=== PATIENT | female | born 1945 | race Caucasian/White ===

== ENCOUNTER 2016-10-31 13:30 | Inpatient (IN) | payer MEDICARE, OTHER ==
[~2016-10-31] VITALS: Ht 160 cm; Wt 70.0 kg
[~2016-10-31 13:30] MED LIST: ACET325T33 PO; ALBU90AE INHALATION; ASPI-664 PO; ATOR20TA38 PO; CHOL100062 PO; CLON-379 PO; CLOP75TA4 PO; HYDR-3498 PO; INSU100I14 SC; ISOS30TA5 PO; METO-448 PO; OLAN5TAB5 PO; PANT40TA4 PO; SEVE800T7 PO
[2016-10-31 13:53] VITALS: Ht 160 cm; Wt 70.0 kg
[2016-10-31] MEDS ORDERED: CIPROFLOXACIN 400MG/D5W 200 ML IVPB STA (17:51)
[2016-10-31] MEDS ORDERED: CLINDAMYCIN 900 MG/D5W (PMX) 50 ML IVPB STA (17:51)
[2016-10-31] MEDS ORDERED: VANCOMYCIN 1 GM (PMX) 250 ML IVPB STA (17:51)
--- NOTE | 2016-10-31 17:57 | ERA ---
ER Documentation Chief Complaint Date/Time DATE: 10/31/16 TIME: 17:53 Chief Complaint L UPPER ARM OPEN WOUND ON DIALYSIS CATHETER. SENT HERE FOR FURTHER EVAL HPI Patient is a 70-year-old dialysis patient who comes in stating that she has had an wound on her left upper extremity for the last 2 weeks that is progressively worsening. She really cannot tell me much more than that. She does not know if she has had a fever, she does not know what it has been draining although she does know it has been draining. She denies any chest pain, shortness of breath, abdominal pain, vomiting, or diarrhea. She says she has been able to go to dialysis because she has a catheter in her chest from which they dialyze her. The remainder of the systems are very limited. ROS All systems reviewed and are negative except as per history of present illness. Medications Home Meds Active Scripts Olanzapine* (Zyprexa*) 5 Mg Tablet, 15 MG PO DAILY for 10 Days, TAB Prov:NATALY SIDDIQUI MD 04/01/16 Isosorbide Mononitrate* (Isosorbide Mononitrate*) 30 Mg Tab.er.24h, 30 MG PO DAILY for 14 Days Prov:NATALY SIDDIQUI MD 04/01/16 Reported Medications Insulin Glargine* (Lantus*) 100 Unit/Ml Soln, UNIT SC, #1 VIAL 10/31/16 Albuterol Sulfate* (Ventolin HFA*) 18 Gm Hfa.aer.ad, 2 PUFF INHALATION Q4H, #1 INHALER 10/31/16 Pantoprazole* (Pantoprazole*) 40 Mg Tablet.dr, 40 MG PO DAILY, TAB 03/28/16 Insulin Lispro (Humalog) 100 U/Ml Insuln.pen, 0 SC SLIDING SCALES, EA 0-150 NO UNUTS, 151-200 2UNITS, 201-250 4UNITS, 251-300 6UNITS, 301-350 8UNITS, 351-400 10UNITSW, >400 12UNITS CALL . 03/28/16 Atorvastatin Calcium* (Atorvastatin Calcium*) 20 Mg Tablet, 20 MG PO QHS, #30 TAB 03/27/16 Metoprolol Tartrate* (Lopressor*) 25 Mg Tab, 25 MG PO BID, #60 TAB 03/27/16 Sevelamer Carbonate* (Renvela*) 800 Mg Tablet, 1600 MG PO WITH MEALS TID, TAB 03/27/16 Clopidogrel Bisulfate* (Clopidogrel Bisulfate*) 75 Mg Tablet, 75 MG PO DAILY, # 30 TAB 03/27/16 Discontinued Reported Medications Hydrocodone Bit-Acetaminophen* (Newton*) 5-325 Mg Tab, 1 TAB PO QHS Y for COUGH for 5 Days, TAB 03/28/16 Cholecalciferol* (Vitamin D3*) 1,000 Unit Tablet, 1000 UNIT PO DAILY, TAB 03/28/16 Clonidine Hcl* (Clonidine Hcl*) 0.1 Mg Tab, 0.1 MG PO BID Y for FOR HYPERTENSION , TAB GIVEN PRN FOR BP>160 03/28/16 Albuterol Sulfate (Proair Respiclick) 90 Mcg Aer.pow.ba, 2 PUFFS INHALATION Q6, #1 BOTTLE 03/27/16 Discontinued Scripts Hydrocodone Bit/Acetaminophen (Anexsia 5-325 Mg Tablet) 1 Tab Tablet, 1 TAB PO Q6H Y for MODERATE PAIN LEVEL 4-6 for 10 Days, TAB Prov:NATALY SIDDIQUI MD 04/01/16 Aspirin* (Aspirin* EC) 81 Mg Tablet.dr, 81 MG PO DAILY for 7 Days Prov:NATALY SIDDIQUI MD 04/01/16 Acetaminophen* (Tylenol*) 325 Mg Tablet, 650 MG PO Q6H Y for PAIN AND OR ELEVATED TEMP for 7 Days, TAB Prov:NATALY SIDDIQUI MD 04/01/16 Allergies Allergies: Coded Allergies: Penicillins (Verified Allergy, Unknown, 10/31/16) PMhx/Soc History of Surgery: Yes (thrombectomy) Hx Neurological Disorder: Yes (Admitted with acute encrphalopathy) Hx Respiratory Disorders: Yes (COPD) Hx Cardiac Disorders: Yes (HTN) Hx Psychiatric Problems: No Hx Miscellaneous Medical Probl: Yes (CKD, AV shunt L arm, DM, PVD, COPD, HTN, ESRD, anxiety, CVA, IA, CAD) Hx Alcohol Use: No Hx Substance Use: No Hx Tobacco Use: Yes (Former smoker) FmHx Family History: coronary disease, diabetes Physical Exam Vitals Vital Signs Date Time Temp Pulse Resp B/P Pulse Ox O2 Delivery O2 Flow Rate FiO2 10/31/16 18:30 97.9 84 20 123/73 98 Nasal Cannula 2.0 10/31/16 18:30 Nasal Cannula 2 10/31/16 16:21 87 18 151/66 98 10/31/16 13:53 97.2 87 18 120/61 96 Physical Exam Const: [] Well-developed well-nourished female sitting on the bed in no acute distress. She has a notable resting tremor in her right upper extremity that appears to be a pill-rolling tremor. Head: Atraumatic normocephalic Eyes: Normal Conjunctiva ENT: Normal External Ears, Nose and Mouth. Neck: Full range of motion..~ No meningismus. Resp: Clear to auscultation bilaterally Cardio: Regular rate and rhythm, 3/6 systolic ejection murmur Abd: Soft, non tender, non distended. Normal bowel sounds Skin: No petechiae or rashes Back: No midline or flank tenderness Ext: No cyanosis, or edema, left upper extremity shows 2 wounds overlying her prior fistula. This wound area is erythematous and warm. It also appears that these wounds are eroding. They appear to have originated from prior puncture wounds. Neur: Awake and alert Psych: Normal Mood and Affect Result Diagram: 10/31/16181410/31/161814 Results 24 hrs Laboratory Tests Test 10/31/16 18:15 10/31/16 19:35 10/31/16 19:38 Activated Partial Thromboplast Time 28.8Sec Alanine Aminotransferase (ALT/SGPT) 22IU/L Albumin 3.8g/dl Albumin/Globulin Ratio 0.97 Alkaline Phosphatase 141IU/L Anion Gap 18 Aspartate Amino Transf (AST/SGOT) 18IU/L Basophils # 0.010^3/ul Basophils % 0.2% Blood Urea Nitrogen 29mg/dl Calcium Level 9.5mg/dl Carbon Dioxide Level 29mmol/L Chloride Level 99mmol/L Creatinine 2.73mg/dl Direct Bilirubin 0.00mg/dl Eosinophils # 0.410^3/ul Eosinophils % 5.0% Globulin 3.90g/dl Glucose Level 216mg/dl Hematocrit 35.7% Hemoglobin 11.4g/dl INR International Normalized Ratio 0.92 Indirect Bilirubin 0.0mg/dl Lactic Acid Level 1.6mmol/L 1.5mmol/L Lymphocytes # 1.210^3/ul Lymphocytes % 13.9% Mean Corpuscular Hemoglobin 29.3pg Mean Corpuscular Hemoglobin Concent 31.9g/dl Mean Corpuscular Volume 91.8fl Mean Platelet Volume 11.2fl Monocytes # 0.810^3/ul Monocytes % 9.2% Neutrophils # 6.110^3/ul Neutrophils % 71.2% Nucleated Red Blood Cells # 0.010^3/ul Nucleated Red Blood Cells % 0.0/100WBC Platelet Count 30498^3/UL Potassium Level 4.5mmol/L Prothrombin Time 12.4Sec Prothrombin Time Ratio 1.0 Red Blood Count 3.8910^6/ul Red Cell Distribution Width 13.4% Sodium Level 141mmol/L Total Bilirubin 0.0mg/dl Total Protein 7.7g/dl Troponin I < 0.012ng/ml White Blood Count 8.610^3/ul Urine Bilirubin NEGATIVE Urine Clarity CLEAR Urine Color LT. YELLOW Urine Glucose 0.5%% Urine Hemoglobin TRACE Urine Ketones NEGATIVE Urine Leukocyte Esterase NEGATIVE Urine Microscopic RBC 0-2/HPF Urine Microscopic WBC NONE SEEN/HPF Urine Nitrite NEGATIVE Urine Specific [place] <=1.005 Urine Squamous Epithelial Cells MANY Urine Total Protein 1+ Urine Urobilinogen 0.2 E.U./dL Urine pH 7.0 Current Medications Medications (Trade) Dose Ordered Sig/Sonny Route PRN Reason Start Time Stop Time Status Last Admin Dose Admin Vancomycin HCl 250 ml @ 125 mls/hr ONCE STAT IVPB 10/31/16 17:51 10/31/16 19:50 DC Clindamycin HCl/ Dextrose 50 ml @ 50 mls/hr ONCE STAT IVPB 10/31/16 17:51 10/31/16 18:50 DC 10/31/16 20:45 Ciprofloxacin/ Dextrose (Cipro Ivpb) 200 ml @ 200 mls/hr ONCE STAT IVPB 10/31/16 17:51 10/31/16 18:50 DC 10/31/16 19:44 Procedures/MDM Differential includes but is not limited to cellulitis, abscess, fistula which is eroding through the skin, diabetes, hypertension, end-stage renal disease with complications Chest X-ray 1V Interpreted by me: Soft Tissue: No acute abnormalities Bones: No acute abnormalities Mediastinum/Cardiac Silhouette/Lungs: No acute abnormalities Dialysis catheter in place EKG: Rate/Rhythm: Normal Sinus Rhythm at 90 bpm with no evidence of acute ischemia, no ST-T wave changes noted, LA intervals within normal limits, QT intervals also within normal limits QRS, ST, T-waves: No changes consistent w/ acute ischemia Impression: No evidence of ischemia or arrhythmia Patient has not had any change in her clinical status. Dr. Siddiqui is here seeing another patient. He has been notified of this patient and he is seeing her now. 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
[2016-10-31 18:25] LABS: ADD SCAN DIFF NO
[2016-10-31 18:26] LABS: BASOPHILS % 0.2 % (0.0-2.0); EOSINOPHILS # 0.4 10^3/ul (0.0-0.5); HEMATOCRIT 35.7 % (37.0-47.0); HEMOGLOBIN 11.4 g/dl (12.0-16.0); LYMPHOCYTES # 1.2 10^3/ul (0.8-2.9); LYMPHOCYTES % 13.9 % (15.0-51.0); MEAN CORPUSCULAR HEMOGLOBIN 29.3 pg (29.0-33.0); MEAN CORPUSCULAR HGB CONC 31.9 g/dl (32.0-37.0); MEAN CORPUSCULAR VOLUME 91.8 fl (82.0-101.0); MEAN PLATELET VOLUME 11.2 fl (7.4-10.4); MONOCYTE # 0.8 10^3/ul (0.3-0.9); MONOCYTES % 9.2 % (0.0-11.0); NEUTROPHIL # 6.1 10^3/ul (1.6-7.5); NEUTROPHILS % 71.2 % (39.0-77.0); PLATELET COUNT 204 10^3/UL (140-415); RED BLOOD COUNT 3.89 10^6/ul (4.20-5.40); RED CELL DISTRIBUTION WIDTH 13.4 % (11.5-14.5); WHITE BLOOD COUNT 8.6 10^3/ul (4.8-10.8)
--- NOTE | 2016-10-31 18:27 | RADRPT ---
PROCEDURE: Chest x-ray CLINICAL INDICATION: Sepsis TECHNIQUE: Chest single view COMPARISON: 03/28/2016 FINDINGS: As before there is left IJ dialysis catheter. Stable cardiomegaly and an sclerotic aortic calcifica tion seen. The pulmonary vessels normal in caliber. Persistent elevation left hemidiaphragm with m ild left basilar compressive atelectasis. Trace left pleural effusion seen. Right lung is clear. Costophrenic angle sharp. IMPRESSION: 1. Dialysis catheter remains in place. 2. Stable cardiomegaly and an sclerotic aortic calcification. 3. Small left pleural effusion with minimal left basilar atelectasis RPTAT: HH .Ben Vizcaino MD, Date Time Electronically viewed and signed by .Ben Vizcaino MD, on 10/31/2016 18:26 .W/
[2016-10-31 18:37] LABS: INR 0.92; PROTIME 12.4 Sec (12.2-14.2)
[2016-10-31 18:38] LABS: PARTIAL THROMBOPLASTIN TIME 28.8 Sec (25.0-35.0)
[2016-10-31 18:39] LABS: ALBUMIN 3.8 g/dl (3.3-4.9); CHLORIDE 99 mmol/L (97-110)
[2016-10-31 18:40] LABS: POTASSIUM 4.5 mmol/L (3.5-5.1); SODIUM 141 mmol/L (135-144)
[2016-10-31 18:42] LABS: ALBUMIN/GLOBULIN RATIO 0.97; ANION GAP 18 (8-16); ASPARTATE AMINO TRANSFERASE 18 IU/L (15-46); BLOOD UREA NITROGEN 29 mg/dl (7-20); CARBON DIOXIDE 29 mmol/L (21-31); CREATININE 2.73 mg/dl (0.44-1.00); TOTAL PROTEIN 7.7 g/dl (6.1-8.1)
[2016-10-31 18:43] LABS: ALANINE AMINOTRANSFERASE 22 IU/L (13-69); ALKALINE PHOSPHATASE 141 IU/L (42-121); CALCIUM 9.5 mg/dl (8.4-10.2); GLUCOSE 216 mg/dl (70-220)
[2016-10-31 18:56] LABS: TROPONIN-I < 0.012 ng/ml (0.00-0.12)
[2016-10-31] MEDS ORDERED: ALBU18HF INHALATION (19:19)
[2016-10-31] MEDS ORDERED: LANT3I SC (19:19)
[2016-10-31 19:50] LABS: ADD UMIC YES; URINE BILIRUBIN (Dip) NEGATIVE (NEGATIVE); URINE BLOOD (Dip) TRACE (NEGATIVE); URINE COLOR LT. YELLOW (YELLOW); URINE KETONES (Dip) NEGATIVE (NEGATIVE); URINE LEUKOCYTE ESTERASE (Dip) NEGATIVE (NEGATIVE); URINE NITRITE (Dip) NEGATIVE (NEGATIVE); URINE TOTAL PROTEIN (Dip) 1+ (NEGATIVE); URINE UROBILINOGEN (Dip) 0.2 E.U./dL (0.1-1.0)
[2016-10-31 20:12] LABS: SQUAMOUS EPITHELIAL CELL,UR MANY
[2016-10-31 20:14] LABS: URINE RBCS 0-2 /HPF (0)
[2016-10-31 20:30] VITALS: TEMP 98
[2016-10-31] MEDS ORDERED: ACETAMINOPHEN 325 MG TAB PO PRN (21:00)
[2016-10-31] MEDS ORDERED: ONDANSETRON 4 MG INJ IV PRN ×2 (21:00→23:30)
[2016-10-31 22:16] VITALS: BP 131/63; RESP 18
--- NOTE | 2016-10-31 23:24 | QN ---
Documentation Comment a/p esrd htn cad left arm woundplan wound care NATALY SIDDIQUI MD Oct 31, 2016 23:23
[2016-10-31] MEDS ORDERED: ACETAMINOPHEN 650 MG SUPP PR PRN (23:30)
[2016-10-31] MEDS ORDERED: VANCOMYCIN IV PER PHARMACY XX SCH (23:30)
[2016-10-31] MEDS ORDERED: BISACODYL (EC) 5 MG TAB PO PRN (23:30)
[2016-10-31] MEDS ORDERED: DOCUSATE SODIUM 100 MG CAP PO PRN (23:30)
[2016-10-31] MEDS ORDERED: NACL 0.9% 3 ML SYG IV SCH (23:30)
[2016-10-31] MEDS ORDERED: GLUCOSE GEL 15 GRAM TUBE BUCCAL PRN (23:45)
[2016-10-31] MEDS ORDERED: DEXTROSE 50% 50 ML SYRINGE IV PRN ×2 (23:45)
[2016-10-31] MEDS ORDERED: GLUCOSE GEL 15 GRAM TUBE PO PRN ×2 (23:45)
[2016-10-31] MEDS ORDERED: GLUCAGON 1 MG INJ IM PRN (23:45)
[2016-11-01] MEDS: ACCUCHECK XX SCH (03:00)
[2016-11-01] MEDS: ALBUTEROL HFA 8 GM INHALER INH SCH ×6 (03:00→20:56)
[2016-11-01 05:06] LABS: ADD SCAN DIFF NO
[2016-11-01 05:24] LABS: ALBUMIN 3.4 g/dl (3.3-4.9)
[2016-11-01 05:25] LABS: POTASSIUM 4.2 mmol/L (3.5-5.1)
[2016-11-01 05:27] LABS: CREATININE 3.47 mg/dl (0.44-1.00); TOTAL PROTEIN 6.8 g/dl (6.1-8.1)
[2016-11-01 05:28] LABS: CALCIUM 8.7 mg/dl (8.4-10.2)
[2016-11-01 05:36] LABS: BASOPHILS % 0.4 % (0.0-2.0); EOSINOPHILS # 0.6 10^3/ul (0.0-0.5); EOSINOPHILS % 8.2 % (0.0-7.0); HEMATOCRIT 33.6 % (37.0-47.0); HEMOGLOBIN 10.4 g/dl (12.0-16.0); LYMPHOCYTES # 1.1 10^3/ul (0.8-2.9); LYMPHOCYTES % 15.1 % (15.0-51.0); MEAN CORPUSCULAR HEMOGLOBIN 28.7 pg (29.0-33.0); MEAN CORPUSCULAR VOLUME 92.8 fl (82.0-101.0); MEAN PLATELET VOLUME 11.7 fl (7.4-10.4); MONOCYTE # 0.9 10^3/ul (0.3-0.9); MONOCYTES % 12.4 % (0.0-11.0); NEUTROPHIL # 4.8 10^3/ul (1.6-7.5); NEUTROPHILS % 63.1 % (39.0-77.0); PLATELET COUNT 195 10^3/UL (140-415); RED BLOOD COUNT 3.62 10^6/ul (4.20-5.40); RED CELL DISTRIBUTION WIDTH 13.5 % (11.5-14.5); WHITE BLOOD COUNT 7.6 10^3/ul (4.8-10.8)
[2016-11-01] MEDS: PANTOPRAZOLE (EC) 40 MG TAB PO SCH (05:37)
[2016-11-01] MEDS ORDERED: LEVOFLOXACIN 500 MG TAB PO ONE (06:00)
[2016-11-01] MEDS: INSULIN ASPART [NOVOLOG] 3 ML PEN SC SCH ×4 (08:00→20:55)
[2016-11-01 08:01] VITALS: BP 104/49; RESP 20
[2016-11-01] MEDS: ISOSORBIDE MONONITRATE(SR)30 MG TAB PO SCH (08:22)
[2016-11-01] MEDS: METOPROLOL 25 MG TAB PO SCH ×2 (08:22→20:50)
[2016-11-01] MEDS: SEVELAMER CARBONATE 0.8 GM PKT PO SCH ×3 (08:23→20:50)
[2016-11-01] MEDS: CLOPIDOGREL 75 MG TAB PO SCH (08:23)
[2016-11-01] MEDS: OLANZAPINE 5 MG TAB PO SCH (08:23)
--- NOTE | 2016-11-01 16:40 | PN ---
Date/Time of Note Date/Time of Note DATE: 11/01/16 TIME: 16:37 Assessment/Plan VTE Prophylaxis VTE Prophylaxis Intervention: other Lines/Catheters IV [facility] Saline Lock Urinary Cath still in place: No Assessment/Plan Chief Complaint/Hosp Course A/P ARM WOUND ESRD ASHD PLAN HD DR MCGOWAN TO SEE Problems: Subjective 24 Hr Interval Summary Cardiovascular: no complaints Gastrointestinal: no complaints Skin: skin lesions (LEFT ARM+) Exam/Review of Systems Vital Signs Vitals Vital Signs Date Time Temp Pulse Resp B/P Pulse Ox O2 Delivery O2 Flow Rate FiO2 11/01/16 08:01 98.9 74 20 104/49 94 10/31/16 20:30 Nasal Cannula 2.0 Intake and Output 10/31/16 10/31/16 11/01/16 15:00 23:00 07:00 Intake Total 770 ml Output Total 2 ml Balance 768 ml Exam Respiratory: clear to auscultation Cardiovascular: regular rate and rhythm Musculoskeletal: other (LEFT ARM WOUND+), swelling (LEFT ARM+) Results Result Diagram: 11/01/16 0410 11/01/16 0410 Results 24 hrs Laboratory Tests Test 10/31/16 18:15 10/31/16 19:35 10/31/16 19:38 10/31/16 23:15 Activated Partial Thromboplast Time 28.8 Alanine Aminotransferase (ALT/SGPT) 22 Albumin 3.8 Albumin/Globulin Ratio 0.97 Alkaline Phosphatase 141 H Anion Gap 18 H Aspartate Amino Transf (AST/SGOT) 18 Basophils # 0.0 Basophils % 0.2 Blood Urea Nitrogen 29 H Calcium Level 9.5 Carbon Dioxide Level 29 Chloride Level 99 Creatinine 2.73 H Direct Bilirubin 0.00 Eosinophils # 0.4 Eosinophils % 5.0 Globulin 3.90 H Glucose Level 216 Hematocrit 35.7 L Hemoglobin 11.4 L INR International Normalized Ratio 0.92 Indirect Bilirubin 0.0 Lactic Acid Level 1.6 1.5 1.8 Lymphocytes # 1.2 Lymphocytes % 13.9 L Mean Corpuscular Hemoglobin 29.3 Mean Corpuscular Hemoglobin Concent 31.9 L Mean Corpuscular Volume 91.8 Mean Platelet Volume 11.2 H Monocytes # 0.8 Monocytes % 9.2 Neutrophils # 6.1 Neutrophils % 71.2 Nucleated Red Blood Cells # 0.0 Nucleated Red Blood Cells % 0.0 Platelet Count 204 Potassium Level 4.5 Prothrombin Time 12.4 Prothrombin Time Ratio 1.0 Red Blood Count 3.89 L Red Cell Distribution Width 13.4 Sodium Level 141 Total Bilirubin 0.0 L Total Protein 7.7 Troponin I < 0.012 White Blood Count 8.6 Urine Bilirubin NEGATIVE Urine Clarity CLEAR Urine Color LT. YELLOW Urine Glucose 0.5% H Urine Hemoglobin TRACE Urine Ketones NEGATIVE Urine Leukocyte Esterase NEGATIVE Urine Microscopic RBC 0-2 Urine Microscopic WBC NONE SEEN Urine Nitrite NEGATIVE Urine Specific [place] <=1.005 L Urine Squamous Epithelial Cells MANY Urine Total Protein 1+ H Urine Urobilinogen 0.2 E.U./dL Urine pH 7.0 Test 11/01/16 04:10 11/01/16 08:01 11/01/16 11:23 Alanine Aminotransferase (ALT/SGPT) 29 Albumin 3.4 Albumin/Globulin Ratio 1.00 Alkaline Phosphatase 125 H Anion Gap 16 Aspartate Amino Transf (AST/SGOT) 15 Basophils # 0.0 Basophils % 0.4 Blood Urea Nitrogen 38 H Calcium Level 8.7 Carbon Dioxide Level 28 Chloride Level 100 Creatinine 3.47 H Direct Bilirubin 0.00 Eosinophils # 0.6 H Eosinophils % 8.2 H Globulin 3.40 H Glucose Level 238 H Hematocrit 33.6 L Hemoglobin 10.4 L Indirect Bilirubin 0.0 Lymphocytes # 1.1 Lymphocytes % 15.1 Mean Corpuscular Hemoglobin 28.7 L Mean Corpuscular Hemoglobin Concent 31.0 L Mean Corpuscular Volume 92.8 Mean Platelet Volume 11.7 H Monocytes # 0.9 Monocytes % 12.4 H Neutrophils # 4.8 Neutrophils % 63.1 Nucleated Red Blood Cells # 0.0 Nucleated Red Blood Cells % 0.0 Platelet Count 195 Potassium Level 4.2 Red Blood Count 3.62 L Red Cell Distribution Width 13.5 Sodium Level 140 Total Bilirubin 0.0 L Total Protein 6.8 White Blood Count 7.6 Bedside Glucose 248 H 176 Medications Medications Current Medications Atorvastatin Calcium (Lipitor) 20 mg QHS PO ; Start 11/01/16 at 21:00 Clopidogrel Bisulfate (plaVIX) 75 mg DAILY PO ; Start 11/01/16 at 09:00 Isosorbide Mononitrate (Imdur) 30 mg DAILY PO ; Start 11/01/16 at 09:00 Metoprolol Tartrate (Lopressor) 25 mg BID PO ; Start 11/01/16 at 09:00 Olanzapine (Zyprexa) 15 mg DAILY PO ; Start 11/01/16 at 09:00 Pantoprazole (Protonix Tab) 40 mg DAILY@06 PO Last administered on 11/01/16t 05: 37; Admin Dose 40 MG; Start 11/01/16 at 06:00 Sevelamer Carbonate (Renvela) 1.6 gm TID PO ; Start 11/01/16 at 09:00 Ondansetron HCl (Zofran Inj) 4 mg Q6H PRN IV NAUSEA AND/OR VOMITING; Start 10/31 at 23:30 Acetaminophen (Tylenol Tab) 650 mg Q6H PRN PO PAIN LEVEL 1-3 OR FEVER; Start at 23:30 Acetaminophen (Tylenol Supp) 650 mg Q6H PRN [place] PAIN LEVEL 1-3 OR FEVER; Start 10/31/16 at 23:30 Docusate Sodium (Colace) 100 mg Q12H PRN PO CONSTIPATION; Start 10/31/16 at 23: 30 Bisacodyl (Dulcolax) 5 mg DAILY PRN PO CONSTIPATION; Start 10/31/16 at 23:30 Diagnostic Test (Pha) (Accucheck) 1 ea 02 XX ; Start 11/01/16 at 02:00 Levofloxacin (Levaquin) 250 mg Q48H PO ; Start 11/03/16 at 06:00 Miscellaneous Information 1 ea NOTE XX ; Start 10/31/16 at 23:45 Glucose (Glutose) 15 gm Q15M PRN PO DECREASED GLUCOSE; Start 10/31/16 at 23:45 Glucose (Glutose) 22.5 gm Q15M PRN PO DECREASED GLUCOSE; Start 10/31/16 at 23:45 Dextrose (D50w Syringe) 25 ml Q15M PRN IV DECREASED GLUCOSE; Start 10/31/16 at 23:45 Dextrose (D50w Syringe) 50 ml Q15M PRN IV DECREASED GLUCOSE; Start 10/31/16 at 23:45 Glucagon (Glucagen) 1 mg Q15M PRN IM DECREASED GLUCOSE; Start 10/31/16 at 23:45 Glucose (Glutose) 15 gm Q15M PRN BUCCAL DECREASED GLUCOSE; Start 10/31/16 at 23: 45 Miscellaneous Information (*Rx Drug Level Order Reminder*) VANCO RANDOM LEVEL... ONCE ONCE XX ; Start 11/02/16 at 05:00; Stop 11/02/16 at 05:01 NATALY SIDDIQUI MD Nov 01, 2016 16:40
--- NOTE | 2016-11-01 16:46 | QN ---
Documentation Comment [id number] NATALY SIDDIQUI MD Nov 01, 2016 16:46
--- NOTE | 2016-11-01 17:37 | HP ---
DATE OF ADMISSION: 10/31/2016 HISTORY OF PRESENT ILLNESS: The patient is a 70-year-old female with history of ESRD. Patient has history of hypertension, diabetes mellitus, anemia, history of pulmonary edema, history of atherosclerotic heart disease. History of smoking in the past, history of Clostridium difficile colitis, congestive heart failure, HI, dyslipidemia, atherosclerotic heart disease, chronic bilateral infarction, deconditioning, lung atelectasis, was in the dialysis center, has an infected AV graft and almost bursting . The patient was sent here for further evaluation where she was seen and is admitted for further treatment. PAST MEDICAL HISTORY: As mentioned above, history of CVA, atherosclerotic heart disease, dyslipidemia, HI and congestive heart failure, C. difficile colitis, history of pulmonary edema, anemia, diabetes mellitus, hypertension, and ESRD. ALLERGY HISTORY: NEGATIVE. SOCIAL HISTORY: Negative except ex-smoker. MEDICATION HISTORY: The patient is on: 1. Albuterol. 2. Lipitor. 3. Plavix. 4. Insulin. 5. Isosorbide. 6. Metoprolol. 7. Zyprexa 8. Protonix. 9. Renvela. REVIEW OF SYSTEMS: HEENT: Unremarkable. RESPIRATORY: Unremarkable. CARDIOVASCULAR: Unremarkable. ABDOMEN: Unremarkable. EXTREMITIES: Left upper extremity AV graft protruding out, swollen, no bleeding. PHYSICAL EXAMINATION: GENERAL: The patient is an elderly female. VITAL SIGNS: Pulse 71, blood pressure 104/49. HEAD: Atraumatic, normocephalic. Pale conjunctivae. NECK: Supple. LUNGS: Clear. CARDIOVASCULAR: S1, S2 normal. ABDOMEN: Soft, nontender. Bowel sounds positive. No palpable mass. EXTREMITIES: No cyanosis, clubbing. Edema positive. LABORATORY DATA: As mentioned above. IMPRESSION: 1. Patient has a protruding graft on the upper extremity. 2. Hypertension. 3. Diabetes mellitus. 4. Anemia. 5. Atherosclerotic heart disease. 6. Dyslipidemia. PLAN: To continue with her diuretic and with renal diet. Continue home medication, antibiotic. Surgical consultation. Orders were done. Dictated By: NATALY SIDDIQUI MD BS/NTS Conf#: [id number] DID#: [id number] MTDD
[2016-11-01] MEDS: ATORVASTATIN 20 MG TAB PO SCH (20:43)
[2016-11-01 21:12] VITALS: BP 125/60; RESP 19
[2016-11-02] VITALS (11 sets, daily range): BP systolic 96–168; BP diastolic 38–73; PULSE 50–156; RESP 17–20
[2016-11-02] MEDS: ALBUTEROL HFA 8 GM INHALER INH SCH ×6 (01:00→21:00)
[2016-11-02] MEDS: ACCUCHECK XX SCH (01:38)
--- NOTE | 2016-11-02 04:35 | CONS ---
DATE OF ADMISSION: 10/31/2016 DATE OF CONSULTATION: REASON FOR CONSULTATION: Surgical. Thank you, Dr. Melendrez, for asking me to see this patient. HISTORY OF PRESENT ILLNESS: This is a 70-year-old female currently on dialysis with PermCath. The patient has had a left upper extremity AV fistula which has an exposed part. The patient is now zac ng admitted for antibiotics and local wound care of cellulitis and open wound on the left arm AV gra ft. PAST MEDICAL HISTORY: Significant for CVA, NH, dyslipidemia, C. difficile colitis, hypertension, GE RD, diabetes, anemia, pulmonary edema. PAST SURGICAL HISTORY: AV graft and dialysis catheters. MEDICATIONS 1. Albuterol. 2. Lipitor. 3. Plavix. 4. Insulin. 5. Isosorbide. 6. PAST SURGICAL HISTORY: As above. REVIEW OF SYSTEMS: Negative. PHYSICAL EXAMINATION: VITAL SIGNS: Blood pressure is 125/60, pulse is 89, respirations 18, saturations 96% on 2 liters of oxygen. HEENT: Normocephalic, atraumatic. PERRLA. NECK: Supple. No JVD, no carotid bruits. CARDIOVASCULAR: Regular rate and rhythm. LUNGS: Clear. ABDOMEN: Soft. EXTREMITIES: Warm. Left arm AV fistula is in place. There is an open sore in the upper aspect of the fistula with graft material seen. LABORATORY VALUES: Significant for a white count of 7.6, hemoglobin 11.4, platelet count 195. IMPRESSION: Infection, left upper extremity arteriovenous graft. RECOMMENDATIONS: I recommend to remove the graft after a period of antibiotic treatment. Discussed with the nursing staff. We will discuss with Dr. Melendrez. Dictated By: CHAGO SUAZO MD FM/NTS Conf#: [id number] DID#: [id number]
[2016-11-02] MEDS: PANTOPRAZOLE (EC) 40 MG TAB PO SCH (05:44)
[2016-11-02] MEDS: INSULIN ASPART [NOVOLOG] 3 ML PEN SC SCH ×4 (08:35→22:27)
[2016-11-02] MEDS: OLANZAPINE 5 MG TAB PO SCH (08:36)
[2016-11-02] MEDS: CLOPIDOGREL 75 MG TAB PO SCH (08:37)
[2016-11-02] MEDS: ISOSORBIDE MONONITRATE(SR)30 MG TAB PO SCH (08:41)
[2016-11-02] MEDS: SEVELAMER CARBONATE 0.8 GM PKT PO SCH ×3 (08:41→21:15)
[2016-11-02] MEDS: METOPROLOL 25 MG TAB PO SCH ×3 (08:41→22:21)
--- NOTE | 2016-11-02 10:20 | PN ---
Date/Time of Note Date/Time of Note DATE: 11/02/16 TIME: 10:19 Assessment/Plan Lines/Catheters IV Catheter Type (from Nrsg): Saline Lock Pickard in Place (from Nrsg): No Assessment/Plan Chief Complaint/Hosp Course IMPRESSION: Infection, left upper extremity arteriovenous graft. RECOMMENDATIONS: I recommend to remove the graft after a period of antibiotic treatment. Discussed with the nursing staff. We will discuss with Dr. Melendrez. Problems: Subjective 24 Hr Interval Summary Constitutional: improved Pain Control: mild Exam/Review of Systems Vital Signs Vitals Vital Signs Date Time Temp Pulse Resp B/P Pulse Ox O2 Delivery O2 Flow Rate FiO2 11/02/16 08:29 98.4 67 17 108/51 95 10/31/16 20:30 Nasal Cannula 2.0 Intake and Output 11/01/16 11/01/16 11/02/16 15:00 23:00 07:00 Intake Total 960 ml 480 ml Balance 960 ml 480 ml Exam Neck: non-tender, supple Respiratory: clear to auscultation, normal air movement Cardiovascular: nl pulses, regular rate and rhythm Gastrointestinal: nl liver, spleen, non-tender, soft Results Result Diagram: 11/01/16 0410 11/01/16 0410 CHAGO SUAZO MD Nov 02, 2016 10:20
[2016-11-02] MEDS ORDERED: VANCOMYCIN 1 GM in NS 250 ML IVPB SCH (12:00)
--- NOTE | 2016-11-02 16:51 | PN ---
Date/Time of Note Date/Time of Note DATE: 11/02/16 TIME: 16:50 Assessment/Plan VTE Prophylaxis VTE Prophylaxis Intervention: other Lines/Catheters [facility] Saline Lock Urinary Cath still in place: No Assessment/Plan Chief Complaint/Hosp Course IMPRESSION: 1. Patient has a protruding graft on the upper extremity. 2. Hypertension. 3. Diabetes mellitus. 4. Anemia. 5. Atherosclerotic heart disease. 6. Dyslipidemia. PLAN ANTIBIOTIC HD Problems: Subjective 24 Hr Interval Summary Cardiovascular: no complaints Gastrointestinal: no complaints Exam/Review of Systems Vital Signs Vitals Vital Signs Date Time Temp Pulse Resp B/P Pulse Ox O2 Delivery O2 Flow Rate FiO2 11/02/16 15:30 156 11/02/16 15:30 18 11/02/16 13:56 Nasal Cannula 2.0 11/02/16 08:29 98.4 108/51 95 Intake and Output 11/01/16 11/01/16 11/02/16 15:00 23:00 07:00 Intake Total 960 ml 480 ml Balance 960 ml 480 ml Exam Respiratory: clear to auscultation Cardiovascular: regular rate and rhythm Gastrointestinal: soft Musculoskeletal: nl extremities to inspection Extremities: normal pulses Results Result Diagram: 11/01/16 0410 11/01/16 0410 Results 24 hrs Laboratory Tests Test 11/01/16 17:16 11/01/16 20:54 11/02/16 01:35 11/02/16 04:30 Bedside Glucose 227 H 255 H 194 Random Vancomycin Level 13.3 Test 11/02/16 08:02 11/02/16 11:50 Bedside Glucose 197 283 H Medications Medications Current Medications Atorvastatin Calcium (Lipitor) 20 mg QHS PO Last administered on 11/01/16 20:43 ; Admin Dose 20 MG; Start 11/01/16 at 21:00 Clopidogrel Bisulfate (plaVIX) 75 mg DAILY PO Last administered on 11/02/16 08: 37; Admin Dose 75 MG; Start 11/01/16 at 09:00 Isosorbide Mononitrate (Imdur) 30 mg DAILY PO ; Start 11/01/16 at 09:00 Metoprolol Tartrate (Lopressor) 25 mg BID PO Last administered on 11/02/16 15: 43; Admin Dose 25 MG; Start 11/01/16 at 09:00 Olanzapine (Zyprexa) 15 mg DAILY PO Last administered on 11/02/16 08:36; Admin Dose 15 MG; Start 11/01/16 at 09:00 Pantoprazole (Protonix Tab) 40 mg DAILY@06 PO Last administered on 11/02/16 05: 44; Admin Dose 40 MG; Start 11/01/16 at 06:00 Sevelamer Carbonate (Renvela) 1.6 gm TID PO Last administered on 11/01/16 20:50 ; Admin Dose 1.6 GM; Start 11/01/16 at 09:00 Ondansetron HCl (Zofran Inj) 4 mg Q6H PRN IV NAUSEA AND/OR VOMITING; Start 10/31 at 23:30 Acetaminophen (Tylenol Tab) 650 mg Q6H PRN PO PAIN LEVEL 1-3 OR FEVER; Start at 23:30 Acetaminophen (Tylenol Supp) 650 mg Q6H PRN IN PAIN LEVEL 1-3 OR FEVER; Start 10/31/16 at 23:30 Docusate Sodium (Colace) 100 mg Q12H PRN PO CONSTIPATION; Start 10/31/16 at 23: 30 Bisacodyl (Dulcolax) 5 mg DAILY PRN PO CONSTIPATION; Start 10/31/16 at 23:30 Diagnostic Test (Pha) (Accucheck) 1 ea 02 XX Last administered on 11/02/16 01: 38; Admin Dose 1 EA; Start 11/01/16 at 02:00 Levofloxacin (Levaquin) 250 mg Q48H PO ; Start 11/03/16 at 06:00 Miscellaneous Information 1 ea NOTE XX ; Start 10/31/16 at 23:45 Glucose (Glutose) 15 gm Q15M PRN PO DECREASED GLUCOSE; Start 10/31/16 at 23:45 Glucose (Glutose) 22.5 gm Q15M PRN PO DECREASED GLUCOSE; Start 10/31/16 at 23:45 Dextrose (D50w Syringe) 25 ml Q15M PRN IV DECREASED GLUCOSE; Start 10/31/16 at 23:45 Dextrose (D50w Syringe) 50 ml Q15M PRN IV DECREASED GLUCOSE; Start 10/31/16 at 23:45 Glucagon (Glucagen) 1 mg Q15M PRN IM DECREASED GLUCOSE; Start 10/31/16 at 23:45 Glucose 15 gm 15 gm Q15M PRN BUCCAL DECREASED GLUCOSE; Start 10/31/16 at 23:45 Vancomycin HCl (Vancocin) 250 ml @ 125 mls/hr ONCE IVPB Last administered on t 15:44; Admin Dose 125 MLS/HR; Start 11/02/16 at 12:00; Stop 11/02/16 at 19 :00 NATALY SIDDIQUI MD Nov 02, 2016 16:51
[2016-11-02] MEDS: ATORVASTATIN 20 MG TAB PO SCH (21:15)
[2016-11-03] MEDS: ALBUTEROL HFA 8 GM INHALER INH SCH ×6 (01:04→20:32)
[2016-11-03] MEDS ORDERED: ACCUCHECK XX SCH (02:00)
[2016-11-03] MEDS: ACCUCHECK XX SCH (02:00)
[2016-11-03] MEDS: PANTOPRAZOLE (EC) 40 MG TAB PO SCH (05:51)
[2016-11-03] MEDS: LEVOFLOXACIN 250 MG TAB PO SCH (05:51)
[2016-11-03 07:15] VITALS: BP 113/59; RESP 20
[2016-11-03] MEDS ORDERED: INSULIN ASPART [NOVOLOG] 3 ML PEN SC SCH ×2 (08:00→22:15)
[2016-11-03] MEDS: INSULIN ASPART [NOVOLOG] 3 ML PEN SC SCH ×4 (08:23→21:00)
[2016-11-03] MEDS: ISOSORBIDE MONONITRATE(SR)30 MG TAB PO SCH (08:29)
[2016-11-03] MEDS: OLANZAPINE 5 MG TAB PO SCH (08:30)
[2016-11-03] MEDS: SEVELAMER CARBONATE 0.8 GM PKT PO SCH ×3 (08:30→20:27)
[2016-11-03] MEDS: CLOPIDOGREL 75 MG TAB PO SCH (08:30)
[2016-11-03] MEDS: METOPROLOL 25 MG TAB PO SCH ×2 (08:30→20:27)
--- NOTE | 2016-11-03 13:11 | PN ---
Date/Time of Note Date/Time of Note DATE: 11/03/16 TIME: 13:10 Assessment/Plan Lines/Catheters IV Catheter Type (from Nrsg): Saline Lock Pickard in Place (from Nrsg): No Assessment/Plan Chief Complaint/Hosp Course IMPRESSION: Infection, left upper extremity arteriovenous graft. RECOMMENDATIONS: I recommend to remove the graft after a period of antibiotic treatment. Discussed with the nursing staff. and Dr. Melendrez. Problems: Subjective 24 Hr Interval Summary Constitutional: improved Pain Control: mild Exam/Review of Systems Vital Signs Vitals Vital Signs Date Time Temp Pulse Resp B/P Pulse Ox O2 Delivery O2 Flow Rate FiO2 11/03/16 07:15 98.3 74 20 113/59 95 11/02/16 13:56 Nasal Cannula 2.0 Intake and Output 11/02/16 11/02/16 11/03/16 15:00 23:00 07:00 Intake Total 1500 ml 150 ml Output Total 2000 ml Balance -500 ml 150 ml Exam Neck: non-tender, supple Respiratory: clear to auscultation, normal air movement Cardiovascular: nl pulses, regular rate and rhythm Gastrointestinal: nl liver, spleen, non-tender, soft Results Result Diagram: 11/01/16 0410 11/01/16 0410 CHAGO SUAZO MD Nov 03, 2016 13:11
--- NOTE | 2016-11-03 17:25 | PN ---
Date/Time of Note Date/Time of Note DATE: 11/03/16 TIME: 17:24 Assessment/Plan VTE Prophylaxis VTE Prophylaxis Intervention: other Lines/Catheters IV C[facility] Type [facility]from [facility] Saline Lock Urinary Cath still in place: No Assessment/Plan Chief Complaint/Hosp Course IMPRESSION: 1. Patient has a protruding graft on the upper extremity. 2. Hypertension. 3. Diabetes mellitus. 4. Anemia. 5. Atherosclerotic heart disease. 6. Dyslipidemia. PLAN ANTIBIOTIC HD [facility]ANTUS Problems: Subjective 24 Hr Interval Summary Respiratory: no complaints Cardiovascular: no complaints Gastrointestinal: no complaints Exam/Review of Systems Vital Signs Vitals Vital Signs Date Time Temp Pulse Resp B/P Pulse Ox O2 Delivery O2 Flow Rate FiO2 11/03/16 07:15 98.3 74 20 113/59 95 11/02/16 13:56 Nasal Cannula 2.0 Intake and Output 11/02/16 11/02/16 11/03/16 15:00 23:00 07:00 Intake Total 1500 ml 150 ml Output Total 2000 ml Balance -500 ml 150 ml Exam Respiratory: diminished breath sounds Cardiovascular: regular rate and rhythm Gastrointestinal: bowel sounds (+), soft Extremities: other (ARM WOUND+) Results Result Diagram: 11/01/16 0410 11/01/16 0410 Results 24 hrs Laboratory Tests Test 11/02/16 21:14 11/02/16 23:50 11/03/16 07:59 11/03/16 12:01 Bedside Glucose 462 *H 326 H 239 H 220 Test 11/03/16 16:51 Bedside Glucose 262 H Medications Medications Current Medications Atorvastatin Calcium (Lipitor) 20 mg QHS PO Last administered on 11/02/16 21:15 ; Admin Dose 20 MG; Start 11/01/16 at 21:00 Clopidogrel Bisulfate (plaVIX) 75 mg DAILY PO Last administered on 11/03/16 08: 30; Admin Dose 75 MG; Start 11/01/16 at 09:00 Isosorbide Mononitrate (Imdur) 30 mg DAILY PO Last administered on 11/03/16 08: 29; Admin Dose 30 MG; Start 11/01/16 at 09:00 Metoprolol Tartrate (Lopressor) 25 mg BID PO Last administered on 11/03/16 08: 30; Admin Dose 25 MG; Start 11/01/16 at 09:00 Olanzapine (Zyprexa) 15 mg DAILY PO Last administered on 11/03/16 08:30; Admin Dose 15 MG; Start 11/01/16 at 09:00 Pantoprazole (Protonix Tab) 40 mg DAILY@06 PO Last administered on 11/03/16 05: 51; Admin Dose 40 MG; Start 11/01/16 at 06:00 Sevelamer Carbonate (Renvela) 1.6 gm TID PO Last administered on 11/02/16 21:15 ; Admin Dose 1.6 GM; Start 11/01/16 at 09:00 Ondansetron HCl (Zofran Inj) 4 mg Q6H PRN IV NAUSEA AND/OR VOMITING; Start 10/31 at 23:30 Acetaminophen (Tylenol Tab) 650 mg Q6H PRN PO PAIN LEVEL 1-3 OR FEVER; Start at 23:30 Acetaminophen (Tylenol Supp) 650 mg Q6H PRN SC PAIN LEVEL 1-3 OR FEVER; Start 10/31/16 at 23:30 Docusate Sodium (Colace) 100 mg Q12H PRN PO CONSTIPATION; Start 10/31/16 at 23: 30 Bisacodyl (Dulcolax) 5 mg DAILY PRN PO CONSTIPATION; Start 10/31/16 at 23:30 Diagnostic Test (Pha) (Accucheck) 1 ea 02 XX Last administered on 11/03/16 02: 00; Admin Dose 1 EA; Start 11/01/16 at 02:00 Levofloxacin (Levaquin) 250 mg Q48H PO Last administered on 11/03/16 05:51; Admin Dose 250 MG; Start 11/03/16 at 06:00 Miscellaneous Information 1 ea NOTE XX ; Start 10/31/16 at 23:45 Glucose (Glutose) 15 gm Q15M PRN PO DECREASED GLUCOSE; Start 10/31/16 at 23:45 Glucose (Glutose) 22.5 gm Q15M PRN PO DECREASED GLUCOSE; Start 10/31/16 at 23:45 Dextrose (D50w Syringe) 25 ml Q15M PRN IV DECREASED GLUCOSE; Start 10/31/16 at 23:45 Dextrose (D50w Syringe) 50 ml Q15M PRN IV DECREASED GLUCOSE; Start 10/31/16 at 23:45 Glucagon (Glucagen) 1 mg Q15M PRN IM DECREASED GLUCOSE; Start 10/31/16 at 23:45 Glucose (Glutose) 15 gm Q15M PRN BUCCAL DECREASED GLUCOSE; Start 10/31/16 at 23: 45 NATALY SIDDIQUI MD Nov 03, 2016 17:25
[2016-11-03 20:00] VITALS: BP 102/64; RESP 19
[2016-11-03] MEDS: ATORVASTATIN 20 MG TAB PO SCH (20:26)
[2016-11-04] MEDS: ALBUTEROL HFA 8 GM INHALER INH SCH ×6 (01:08→20:53)
[2016-11-04] MEDS: ACCUCHECK XX SCH (02:00)
[2016-11-04] MEDS: PANTOPRAZOLE (EC) 40 MG TAB PO SCH (05:57)
[2016-11-04] MEDS ORDERED: INSULIN GLARGINE [LANtus] 3 ML PEN SC SCH (08:00)
[2016-11-04 08:03] VITALS: BP 115/54; RESP 18
[2016-11-04] MEDS: INSULIN ASPART [NOVOLOG] 3 ML PEN SC SCH ×4 (08:21→21:33)
[2016-11-04] MEDS: METOPROLOL 25 MG TAB PO SCH ×2 (09:00→20:53)
[2016-11-04] MEDS: ISOSORBIDE MONONITRATE(SR)30 MG TAB PO SCH (09:58)
[2016-11-04] MEDS: OLANZAPINE 5 MG TAB PO SCH (09:58)
[2016-11-04] MEDS: CLOPIDOGREL 75 MG TAB PO SCH (09:58)
[2016-11-04] MEDS: SEVELAMER CARBONATE 0.8 GM PKT PO SCH ×3 (09:58→20:53)
--- NOTE | 2016-11-04 11:50 | PN ---
Date/Time of Note Date/Time of Note DATE: 11/04/16 TIME: 11:49 Assessment/Plan Lines/Catheters IV Catheter Type (from Nrsg): Saline Lock Pickard in Place (from Nrsg): No Assessment/Plan Chief Complaint/Hosp Course IMPRESSION: Infection, left upper extremity arteriovenous graft. RECOMMENDATIONS: I recommend to remove the graft after a period of antibiotic treatment. tentitively for Saturday Discussed with the nursing staff. and Dr. Melendrez. Problems: Subjective 24 Hr Interval Summary Constitutional: improved Pain Control: mild Exam/Review of Systems Vital Signs Vitals Vital Signs Date Time Temp Pulse Resp B/P Pulse Ox O2 Delivery O2 Flow Rate FiO2 11/04/16 08:03 98.1 77 18 115/54 94 11/02/16 13:56 Nasal Cannula 2.0 Intake and Output 11/03/16 11/03/16 11/04/16 15:00 23:00 07:00 Intake Total 530 ml 250 ml Balance 530 ml 250 ml Exam Neck: non-tender, supple Respiratory: clear to auscultation, normal air movement Cardiovascular: nl pulses, regular rate and rhythm Gastrointestinal: nl liver, spleen, non-tender, soft Results Result Diagram: 11/01/16 0410 11/01/16 0410 CHAGO SUAZO MD Nov 04, 2016 11:49
--- NOTE | 2016-11-04 17:03 | PN ---
Date/Time of Note Date/Time of Note DATE: 11/04/16 TIME: 17:02 Assessment/Plan VTE Prophylaxis VTE Prophylaxis Intervention: other Lines/Catheters [facility] Type [facility]from [facility] Saline Lock Urinary Cath still in place: No Assessment/Plan Chief Complaint/Hosp Course IMPRESSION: 1. Patient has a protruding graft on the upper extremity. 2. Hypertension. 3. Diabetes mellitus. 4. Anemia. 5. Atherosclerotic heart disease. 6. Dyslipidemia. PLAN ANTIBIOTIC HD LANTUS SURGERY SOON Problems: Subjective 24 Hr Interval Summary Respiratory: no complaints Cardiovascular: no complaints Gastrointestinal: no complaints Exam/Review of Systems Vital Signs Vitals Vital Signs Date Time Temp Pulse Resp B/P Pulse Ox O2 Delivery O2 Flow Rate FiO2 11/04/16 08:03 98.1 77 18 115/54 94 11/02/16 13:56 Nasal Cannula 2.0 Intake and Output 11/03/16 11/03/16 11/04/16 15:00 23:00 07:00 Intake Total 530 ml 250 ml Balance 530 ml 250 ml Exam Respiratory: clear to auscultation Cardiovascular: regular rate and rhythm Gastrointestinal: soft Musculoskeletal: nl extremities to inspection Results Result Diagram: 11/01/16 0410 11/01/16 0410 Results 24 hrs Laboratory Tests Test 11/03/16 20:24 11/04/16 07:59 11/04/16 11:39 11/04/16 16:49 Bedside Glucose 143 185 236 H 180 Medications Medications Current Medications Atorvastatin Calcium (Lipitor) 20 mg QHS PO Last administered on 11/03/16 20:26 ; Admin Dose 20 MG; Start 11/01/16 at 21:00 Clopidogrel Bisulfate (plaVIX) 75 mg DAILY PO Last administered on 11/04/16 09: 58; Admin Dose 75 MG; Start 11/01/16 at 09:00 Isosorbide Mononitrate (Imdur) 30 mg DAILY PO Last administered on 11/04/16 09: 58; Admin Dose 30 MG; Start 11/01/16 at 09:00 Metoprolol Tartrate (Lopressor) 25 mg BID PO Last administered on 11/03/16 20: 27; Admin Dose 25 MG; Start 11/01/16 at 09:00 Olanzapine (Zyprexa) 15 mg DAILY PO Last administered on 11/04/16 09:58; Admin Dose 15 MG; Start 11/01/16 at 09:00 Pantoprazole (Protonix Tab) 40 mg DAILY@06 PO Last administered on 11/04/16 05: 57; Admin Dose 40 MG; Start 11/01/16 at 06:00 Sevelamer Carbonate (Renvela) 1.6 gm TID PO Last administered on 11/04/16 12:14 ; Admin Dose 1.6 GM; Start 11/01/16 at 09:00 Ondansetron HCl (Zofran Inj) 4 mg Q6H PRN IV NAUSEA AND/OR VOMITING; Start 10/31 at 23:30 Acetaminophen (Tylenol Tab) 650 mg Q6H PRN PO PAIN LEVEL 1-3 OR FEVER; Start at 23:30 Acetaminophen (Tylenol Supp) 650 mg Q6H PRN [place] PAIN LEVEL 1-3 OR FEVER; Start 10/31/16 at 23:30 Docusate Sodium (Colace) 100 mg Q12H PRN PO CONSTIPATION; Start 10/31/16 at 23: 30 Bisacodyl (Dulcolax) 5 mg DAILY PRN PO CONSTIPATION; Start 10/31/16 at 23:30 Diagnostic Test (Pha) (Accucheck) 1 ea 02 XX Last administered on 11/03/16 02: 00; Admin Dose 1 EA; Start 11/01/16 at 02:00 Levofloxacin (Levaquin) 250 mg Q48H PO Last administered on 11/03/16 05:51; Admin Dose 250 MG; Start 11/03/16 at 06:00 Miscellaneous Information 1 ea NOTE XX ; Start 10/31/16 at 23:45 Glucose (Glutose) 15 gm Q15M PRN PO DECREASED GLUCOSE; Start 10/31/16 at 23:45 Glucose (Glutose) 22.5 gm Q15M PRN PO DECREASED GLUCOSE; Start 10/31/16 at 23:45 Dextrose (D50w Syringe) 25 ml Q15M PRN IV DECREASED GLUCOSE; Start 10/31/16 at 23:45 Dextrose (D50w Syringe) 50 ml Q15M PRN IV DECREASED GLUCOSE; Start 10/31/16 at 23:45 Glucagon (Glucagen) 1 mg Q15M PRN IM DECREASED GLUCOSE; Start 10/31/16 at 23:45 Glucose (Glutose) 15 gm Q15M PRN BUCCAL DECREASED GLUCOSE; Start 10/31/16 at 23: 45 Insulin Glargine (Lantus) 12 unit DAILY@08 SC Last administered on 11/04/16t 08: 20; Admin Dose 12 UNIT; Start 11/04/16 at 08:00 NATALY SIDDIQUI MD Nov 04, 2016 17:03
[2016-11-04 20:00] VITALS: BP 113/55; RESP 20
[2016-11-04] MEDS: ATORVASTATIN 20 MG TAB PO SCH (20:53)
[2016-11-04] MEDS ORDERED: INSULIN ASPART [NOVOLOG] 3 ML PEN SC ONE (21:30)
[2016-11-05] VITALS (9 sets, daily range): BP systolic 110–132; BP diastolic 53–76; PULSE 87–92; RESP 18–21
[2016-11-05] MEDS: ALBUTEROL HFA 8 GM INHALER INH SCH ×6 (01:00→20:23)
[2016-11-05] MEDS: ACCUCHECK XX SCH (01:58)
[2016-11-05] MEDS: PANTOPRAZOLE (EC) 40 MG TAB PO SCH (05:04)
[2016-11-05] MEDS: LEVOFLOXACIN 250 MG TAB PO SCH (05:05)
[2016-11-05 05:53] LABS: ADD SCAN DIFF NO
[2016-11-05 05:58] LABS: BASOPHILS % 0.3 % (0.0-2.0); EOSINOPHILS # 0.5 10^3/ul (0.0-0.5); EOSINOPHILS % 5.2 % (0.0-7.0); HEMATOCRIT 30.8 % (37.0-47.0); HEMOGLOBIN 9.7 g/dl (12.0-16.0); LYMPHOCYTES % 11.1 % (15.0-51.0); MEAN CORPUSCULAR HEMOGLOBIN 28.7 pg (29.0-33.0); MEAN CORPUSCULAR HGB CONC 31.5 g/dl (32.0-37.0); MEAN CORPUSCULAR VOLUME 91.1 fl (82.0-101.0); MEAN PLATELET VOLUME 11.4 fl (7.4-10.4); MONOCYTE # 0.9 10^3/ul (0.3-0.9); MONOCYTES % 10.4 % (0.0-11.0); NEUTROPHIL # 6.5 10^3/ul (1.6-7.5); NEUTROPHILS % 72.3 % (39.0-77.0); PLATELET COUNT 185 10^3/UL (140-415); RED BLOOD COUNT 3.38 10^6/ul (4.20-5.40); RED CELL DISTRIBUTION WIDTH 13.7 % (11.5-14.5)
[2016-11-05 06:15] LABS: POTASSIUM 3.8 mmol/L (3.5-5.1)
[2016-11-05 06:18] LABS: CREATININE 6.54 mg/dl (0.44-1.00)
[2016-11-05 06:19] LABS: CALCIUM 8.6 mg/dl (8.4-10.2)
[2016-11-05] MEDS: INSULIN ASPART [NOVOLOG] 3 ML PEN SC SCH ×7 (08:05→20:29)
[2016-11-05] MEDS: INSULIN GLARGINE [LANtus] 3 ML PEN SC SCH (08:09)
[2016-11-05] MEDS: ISOSORBIDE MONONITRATE(SR)30 MG TAB PO SCH (08:54)
[2016-11-05] MEDS: METOPROLOL 25 MG TAB PO SCH ×2 (08:55→20:32)
[2016-11-05] MEDS: CLOPIDOGREL 75 MG TAB PO SCH (09:30)
[2016-11-05] MEDS: OLANZAPINE 5 MG TAB PO SCH (09:31)
[2016-11-05] MEDS: SEVELAMER CARBONATE 0.8 GM PKT PO SCH ×3 (09:31→20:23)
--- NOTE | 2016-11-05 16:57 | PN ---
Date/Time of Note Date/Time of Note DATE: 11/05/16 TIME: 16:56 Assessment/Plan VTE Prophylaxis VTE Prophylaxis Intervention: other Lines/Catheters IV [facility] Type (from [facility] Central line still needed: No Urinary Cath still in place: No Assessment/Plan Chief Complaint/Hosp Course IMPRESSION: Infection, left upper extremity arteriovenous graft. RECOMMENDATIONS: I recommend to remove the graft after a period of antibiotic treatment. tentitively for Saturday Discussed with the nursing staff. and Dr. Melendrez. Problems: Subjective 24 Hr Interval Summary Gastrointestinal: no complaints Genitourinary: no complaints Musculoskeletal: no complaints Skin: no complaints Neurologic: no complaints Exam/Review of Systems Vital Signs Vitals Vital Signs Date Time Temp Pulse Resp B/P Pulse Ox O2 Delivery O2 Flow Rate FiO2 11/05/16 10:50 92 11/05/16 10:50 18 11/05/16 07:20 98.4 118/55 98 11/02/16 13:56 Nasal Cannula 2.0 Intake and Output 11/04/16 11/04/16 11/05/16 15:00 23:00 07:00 Intake Total 920 ml 480 ml Balance 920 ml 480 ml Exam ENMT: nl external ears & nose, nl lips & teeth, nl nasal mucosa & septum Neck: non-tender, supple Respiratory: clear to auscultation, normal air movement Cardiovascular: nl pulses, regular rate and rhythm Results Result Diagram: 11/05/16 0525 11/05/16 0525 Results 24 hrs Laboratory Tests Test 11/04/16 20:52 11/05/16 01:55 11/05/16 05:25 11/05/16 07:14 Bedside Glucose 310 H 195 247 H Anion Gap 22 H Basophils # 0.0 Basophils % 0.3 Blood Urea Nitrogen 67 H Calcium Level 8.6 Carbon Dioxide Level 22 Chloride Level 100 Creatinine 6.54 H Eosinophils # 0.5 Eosinophils % 5.2 Glucose Level 220 Hematocrit 30.8 L Hemoglobin 9.7 L Lymphocytes # 1.0 Lymphocytes % 11.1 L Mean Corpuscular Hemoglobin 28.7 L Mean Corpuscular Hemoglobin Concent 31.5 L Mean Corpuscular Volume 91.1 Mean Platelet Volume 11.4 H Monocytes # 0.9 Monocytes % 10.4 Neutrophils # 6.5 Neutrophils % 72.3 Nucleated Red Blood Cells # 0.0 Nucleated Red Blood Cells % 0.0 Platelet Count 185 Potassium Level 3.8 Red Blood Count 3.38 L Red Cell Distribution Width 13.7 Sodium Level 140 White Blood Count 9.0 Test 11/05/16 11:28 11/05/16 16:46 Bedside Glucose 275 H 278 H Medications Medications Current Medications Atorvastatin Calcium (Lipitor) 20 mg QHS PO Last administered on 11/04/16 20:53 ; Admin Dose 20 MG; Start 11/01/16 at 21:00 Clopidogrel Bisulfate (plaVIX) 75 mg DAILY PO Last administered on 11/05/16 09: 30; Admin Dose 75 MG; Start 11/01/16 at 09:00 Isosorbide Mononitrate (Imdur) 30 mg DAILY PO Last administered on 11/04/16 09: 58; Admin Dose 30 MG; Start 11/01/16 at 09:00 Metoprolol Tartrate (Lopressor) 25 mg BID PO Last administered on 11/04/16 20: 53; Admin Dose 25 MG; Start 11/01/16 at 09:00 Olanzapine (Zyprexa) 15 mg DAILY PO Last administered on 11/05/16 09:31; Admin Dose 15 MG; Start 11/01/16 at 09:00 Pantoprazole (Protonix Tab) 40 mg DAILY@06 PO Last administered on 11/05/16 05: 04; Admin Dose 40 MG; Start 11/01/16 at 06:00 Sevelamer Carbonate (Renvela) 1.6 gm TID PO Last administered on 11/05/16 12:14 ; Admin Dose 1.6 GM; Start 11/01/16 at 09:00 Ondansetron HCl (Zofran Inj) 4 mg Q6H PRN IV NAUSEA AND/OR VOMITING; Start 10/31 at 23:30 Acetaminophen (Tylenol Tab) 650 mg Q6H PRN PO PAIN LEVEL 1-3 OR FEVER; Start at 23:30 Acetaminophen (Tylenol Supp) 650 mg Q6H PRN [place] PAIN LEVEL 1-3 OR FEVER; Start 10/31/16 at 23:30 Docusate Sodium (Colace) 100 mg Q12H PRN PO CONSTIPATION; Start 10/31/16 at 23: 30 Bisacodyl (Dulcolax) 5 mg DAILY PRN PO CONSTIPATION; Start 10/31/16 at 23:30 Diagnostic Test (Pha) (Accucheck) 1 ea 02 XX Last administered on 11/05/16 01: 58; Admin Dose 1 EA; Start 11/01/16 at 02:00 Levofloxacin (Levaquin) 250 mg Q48H PO Last administered on 11/05/16 05:05; Admin Dose 250 MG; Start 11/03/16 at 06:00 Miscellaneous Information 1 ea NOTE XX ; Start 10/31/16 at 23:45 Glucose (Glutose) 15 gm Q15M PRN PO DECREASED GLUCOSE; Start 10/31/16 at 23:45 Glucose (Glutose) 22.5 gm Q15M PRN PO DECREASED GLUCOSE; Start 10/31/16 at 23:45 Dextrose (D50w Syringe) 25 ml Q15M PRN IV DECREASED GLUCOSE; Start 10/31/16 at 23:45 Dextrose (D50w Syringe) 50 ml Q15M PRN IV DECREASED GLUCOSE; Start 10/31/16 at 23:45 Glucagon (Glucagen) 1 mg Q15M PRN IM DECREASED GLUCOSE; Start 10/31/16 at 23:45 Glucose (Glutose) 15 gm Q15M PRN BUCCAL DECREASED GLUCOSE; Start 10/31/16 at 23: 45 Insulin Glargine (Lantus) 15 unit DAILY@08 SC Last administered on 11/05/16 08: 09; Admin Dose 15 UNIT; Start 11/05/16 at 08:00 Miscellaneous Information (*Rx Drug Level Order Reminder*) RANDOM VANCO LEVEL... ONCE ONCE XX ; Start 11/06/16 at 05:00; Stop 11/06/16 at 05:01 CHAGO SUAZO MD Nov 05, 2016 16:57
[2016-11-05] MEDS: ATORVASTATIN 20 MG TAB PO SCH (20:23)
--- NOTE | 2016-11-05 20:49 | PN ---
Date/Time of Note Date/Time of Note DATE: 11/05/16 TIME: 20:48 Assessment/Plan VTE Prophylaxis VTE Prophylaxis Intervention: other Lines/Catheters IV [facility] Type (from [facility]): Urinary Cath still in place: No Assessment/Plan Chief Complaint/Hosp Course IMPRESSION: 1. Patient has a protruding graft on the upper extremity. 2. Hypertension. 3. Diabetes mellitus. 4. Anemia. 5. Atherosclerotic heart disease. 6. Dyslipidemia. PLAN ANTIBIOTIC HD LANTUS SURGERY SOON Problems: Subjective 24 Hr Interval Summary Respiratory: no complaints Cardiovascular: no complaints Exam/Review of Systems Vital Signs Vitals Vital Signs Date Time Temp Pulse Resp B/P Pulse Ox O2 Delivery O2 Flow Rate FiO2 11/05/16 10:50 92 11/05/16 10:50 18 11/05/16 07:20 98.4 118/55 98 11/02/16 13:56 Nasal Cannula 2.0 Intake and Output 11/04/16 11/04/16 11/05/16 15:00 23:00 07:00 Intake Total 920 ml 480 ml Balance 920 ml 480 ml Exam Respiratory: clear to auscultation Cardiovascular: regular rate and rhythm Gastrointestinal: soft Extremities: No edema Results Result Diagram: 11/05/16 0525 11/05/16 0525 Results 24 hrs Laboratory Tests Test 11/04/16 20:52 11/05/16 01:55 11/05/16 05:25 11/05/16 07:14 Bedside Glucose 310 H 195 247 H Anion Gap 22 H Basophils # 0.0 Basophils % 0.3 Blood Urea Nitrogen 67 H Calcium Level 8.6 Carbon Dioxide Level 22 Chloride Level 100 Creatinine 6.54 H Eosinophils # 0.5 Eosinophils % 5.2 Glucose Level 220 Hematocrit 30.8 L Hemoglobin 9.7 L Lymphocytes # 1.0 Lymphocytes % 11.1 L Mean Corpuscular Hemoglobin 28.7 L Mean Corpuscular Hemoglobin Concent 31.5 L Mean Corpuscular Volume 91.1 Mean Platelet Volume 11.4 H Monocytes # 0.9 Monocytes % 10.4 Neutrophils # 6.5 Neutrophils % 72.3 Nucleated Red Blood Cells # 0.0 Nucleated Red Blood Cells % 0.0 Platelet Count 185 Potassium Level 3.8 Red Blood Count 3.38 L Red Cell Distribution Width 13.7 Sodium Level 140 White Blood Count 9.0 Test 11/05/16 11:28 11/05/16 16:46 11/05/16 20:27 Bedside Glucose 275 H 278 H 79 Medications Medications Current Medications Atorvastatin Calcium (Lipitor) 20 mg QHS PO Last administered on 11/05/16 20:23 ; Admin Dose 20 MG; Start 11/01/16 at 21:00 Clopidogrel Bisulfate (plaVIX) 75 mg DAILY PO Last administered on 11/05/16 09: 30; Admin Dose 75 MG; Start 11/01/16 at 09:00 Isosorbide Mononitrate (Imdur) 30 mg DAILY PO Last administered on 11/04/16 09: 58; Admin Dose 30 MG; Start 11/01/16 at 09:00 Metoprolol Tartrate (Lopressor) 25 mg BID PO Last administered on 11/05/16 20: 32; Admin Dose 25 MG; Start 11/01/16 at 09:00 Olanzapine (Zyprexa) 15 mg DAILY PO Last administered on 11/05/16 09:31; Admin Dose 15 MG; Start 11/01/16 at 09:00 Pantoprazole (Protonix Tab) 40 mg DAILY@06 PO Last administered on 11/05/16 05: 04; Admin Dose 40 MG; Start 11/01/16 at 06:00 Sevelamer Carbonate (Renvela) 1.6 gm TID PO Last administered on 11/05/16 20:23 ; Admin Dose 1.6 GM; Start 11/01/16 at 09:00 Ondansetron HCl (Zofran Inj) 4 mg Q6H PRN IV NAUSEA AND/OR VOMITING; Start 10/31 at 23:30 Acetaminophen (Tylenol Tab) 650 mg Q6H PRN PO PAIN LEVEL 1-3 OR FEVER; Start at 23:30 Acetaminophen (Tylenol Supp) 650 mg Q6H PRN [place] PAIN LEVEL 1-3 OR FEVER; Start 10/31/16 at 23:30 Docusate Sodium (Colace) 100 mg Q12H PRN PO CONSTIPATION; Start 10/31/16 at 23: 30 Bisacodyl (Dulcolax) 5 mg DAILY PRN PO CONSTIPATION; Start 10/31/16 at 23:30 Diagnostic Test (Pha) (Accucheck) 1 ea 02 XX Last administered on 11/05/16 01: 58; Admin Dose 1 EA; Start 11/01/16 at 02:00 Levofloxacin (Levaquin) 250 mg Q48H PO Last administered on 11/05/16 05:05; Admin Dose 250 MG; Start 11/03/16 at 06:00 Miscellaneous Information 1 ea NOTE XX ; Start 10/31/16 at 23:45 Glucose (Glutose) 15 gm Q15M PRN PO DECREASED GLUCOSE; Start 10/31/16 at 23:45 Glucose (Glutose) 22.5 gm Q15M PRN PO DECREASED GLUCOSE; Start 10/31/16 at 23:45 Dextrose (D50w Syringe) 25 ml Q15M PRN IV DECREASED GLUCOSE; Start 10/31/16 at 23:45 Dextrose (D50w Syringe) 50 ml Q15M PRN IV DECREASED GLUCOSE; Start 10/31/16 at 23:45 Glucagon (Glucagen) 1 mg Q15M PRN IM DECREASED GLUCOSE; Start 10/31/16 at 23:45 Glucose (Glutose) 15 gm Q15M PRN BUCCAL DECREASED GLUCOSE; Start 10/31/16 at 23: 45 Insulin Glargine (Lantus) 15 unit DAILY@08 SC Last administered on 11/05/16 08: 09; Admin Dose 15 UNIT; Start 11/05/16 at 08:00 Miscellaneous Information (*Rx Drug Level Order Reminder*) RANDOM VANCO LEVEL... ONCE ONCE XX ; Start 11/06/16 at 05:00; Stop 11/06/16 at 05:01 NATALY SIDDIQUI MD Nov 05, 2016 20:49
[2016-11-06] MEDS: ALBUTEROL HFA 8 GM INHALER INH SCH ×6 (01:00→20:53)
[2016-11-06] MEDS: ACCUCHECK XX SCH (01:56)
[2016-11-06] MEDS: PANTOPRAZOLE (EC) 40 MG TAB PO SCH (05:32)
[2016-11-06 07:38] VITALS: BP 122/56; RESP 18
[2016-11-06] MEDS: ISOSORBIDE MONONITRATE(SR)30 MG TAB PO SCH (08:01)
[2016-11-06] MEDS: METOPROLOL 25 MG TAB PO SCH ×2 (08:02→20:53)
[2016-11-06] MEDS: INSULIN GLARGINE [LANtus] 3 ML PEN SC SCH (08:04)
[2016-11-06] MEDS: INSULIN ASPART [NOVOLOG] 3 ML PEN SC SCH ×7 (08:04→20:54)
[2016-11-06] MEDS: CLOPIDOGREL 75 MG TAB PO SCH (08:05)
[2016-11-06] MEDS: OLANZAPINE 5 MG TAB PO SCH (08:05)
[2016-11-06] MEDS: SEVELAMER CARBONATE 0.8 GM PKT PO SCH ×3 (08:05→20:53)
--- NOTE | 2016-11-06 13:20 | PN ---
Date/Time of Note Date/Time of Note DATE: 11/06/16 TIME: 13:20 Assessment/Plan Lines/Catheters IV Catheter Type (from Nrsg): Saline Lock Pickard in Place (from Nrsg): No Assessment/Plan Chief Complaint/Hosp Course IMPRESSION: Infection, left upper extremity arteriovenous graft. RECOMMENDATIONS: I recommend to remove the graft after a period of antibiotic treatment. Saturday Discussed with the nursing staff. and Dr. Melendrez. Problems: Subjective 24 Hr Interval Summary Constitutional: improved Pain Control: mild Exam/Review of Systems Vital Signs Vitals Vital Signs Date Time Temp Pulse Resp B/P Pulse Ox O2 Delivery O2 Flow Rate FiO2 11/06/16 07:38 98.0 79 18 122/56 98 11/02/16 13:56 Nasal Cannula 2.0 Intake and Output 11/05/16 11/05/16 11/06/16 14:59 22:59 06:59 Intake Total 500 ml 800 ml 720 ml Output Total 3500 ml Balance -3000 ml 800 ml 720 ml Exam ENMT: mucosa pink and moist, nl external ears & nose, nl lips & teeth, nl nasal mucosa & septum Neck: non-tender, supple Respiratory: clear to auscultation, normal air movement Cardiovascular: nl pulses, regular rate and rhythm Results Result Diagram: 11/05/16 0525 11/05/16 0525 CHAGO SUAZO MD Nov 06, 2016 13:20
[2016-11-06] MEDS: VANCOMYCIN 1 GM in NS 250 ML IVPB SCH (14:46)
[2016-11-06 20:20] VITALS: BP 125/58; RESP 18
[2016-11-06] MEDS: ATORVASTATIN 20 MG TAB PO SCH (20:53)
--- NOTE | 2016-11-06 21:07 | PN ---
Date/Time of Note Date/Time of Note DATE: 11/06/16 TIME: 21:06 Assessment/Plan VTE Prophylaxis VTE Prophylaxis Intervention: other Lines/Catheters IV Catheter Type (from [facility]): Saline Lock Urinary Cath still in place: No Assessment/Plan Chief Complaint/Hosp Course IMPRESSION: 1. Patient has a protruding graft on the upper extremity. 2. Hypertension. 3. Diabetes mellitus. 4. Anemia. 5. Atherosclerotic heart disease. 6. Dyslipidemia. PLAN ANTIBIOTIC HD LANTUS SURGERY SOON Problems: Subjective 24 Hr Interval Summary ENT: no complaints Respiratory: no complaints Exam/Review of Systems Vital Signs Vitals Vital Signs Date Time Temp Pulse Resp B/P Pulse Ox O2 Delivery O2 Flow Rate FiO2 11/06/16 20:20 98.4 89 18 125/58 96 11/02/16 13:56 Nasal Cannula 2.0 Intake and Output 11/05/16 11/05/16 11/06/16 15:00 23:00 07:00 Intake Total 500 ml 800 ml 720 ml Output Total 3500 ml Balance -3000 ml 800 ml 720 ml Exam Neck: supple Respiratory: clear to auscultation Cardiovascular: regular rate and rhythm Gastrointestinal: soft Musculoskeletal: nl extremities to inspection Results Result Diagram: 11/05/16 0525 11/05/16 0525 Results 24 hrs Laboratory Tests Test 11/06/16 01:44 11/06/16 04:38 11/06/16 07:24 11/06/16 11:48 Bedside Glucose 211 177 224 H Random Vancomycin Level 12.8 Test 11/06/16 16:55 11/06/16 20:49 Bedside Glucose 168 67 L Medications Medications Current Medications Atorvastatin Calcium (Lipitor) 20 mg QHS PO Last administered on 11/06/16 20:53 ; Admin Dose 20 MG; Start 11/01/16 at 21:00 Clopidogrel Bisulfate (plaVIX) 75 mg DAILY PO Last administered on 11/06/16 08: 05; Admin Dose 75 MG; Start 11/01/16 at 09:00 Isosorbide Mononitrate (Imdur) 30 mg DAILY PO Last administered on 11/04/16 09: 58; Admin Dose 30 MG; Start 11/01/16 at 09:00 Metoprolol Tartrate (Lopressor) 25 mg BID PO Last administered on 11/06/16 20: 53; Admin Dose 25 MG; Start 11/01/16 at 09:00 Olanzapine (Zyprexa) 15 mg DAILY PO Last administered on 11/06/16 08:05; Admin Dose 15 MG; Start 11/01/16 at 09:00 Pantoprazole (Protonix Tab) 40 mg DAILY@06 PO Last administered on 11/06/16 05: 32; Admin Dose 40 MG; Start 11/01/16 at 06:00 Sevelamer Carbonate (Renvela) 1.6 gm TID PO Last administered on 11/06/16 20:53 ; Admin Dose 1.6 GM; Start 11/01/16 at 09:00 Ondansetron HCl (Zofran Inj) 4 mg Q6H PRN IV NAUSEA AND/OR VOMITING; Start 10/31 at 23:30 Acetaminophen (Tylenol Tab) 650 mg Q6H PRN PO PAIN LEVEL 1-3 OR FEVER; Start at 23:30 Acetaminophen (Tylenol Supp) 650 mg Q6H PRN [place] PAIN LEVEL 1-3 OR FEVER; Start 10/31/16 at 23:30 Docusate Sodium (Colace) 100 mg Q12H PRN PO CONSTIPATION; Start 10/31/16 at 23: 30 Bisacodyl (Dulcolax) 5 mg DAILY PRN PO CONSTIPATION; Start 10/31/16 at 23:30 Diagnostic Test (Pha) (Accucheck) 1 ea 02 XX Last administered on 11/06/16 01: 56; Admin Dose 1 EA; Start 11/01/16 at 02:00 Levofloxacin (Levaquin) 250 mg Q48H PO Last administered on 11/05/16 05:05; Admin Dose 250 MG; Start 11/03/16 at 06:00 Miscellaneous Information 1 ea NOTE XX ; Start 10/31/16 at 23:45 Glucose (Glutose) 15 gm Q15M PRN PO DECREASED GLUCOSE; Start 10/31/16 at 23:45 Glucose (Glutose) 22.5 gm Q15M PRN PO DECREASED GLUCOSE; Start 10/31/16 at 23:45 Dextrose (D50w Syringe) 25 ml Q15M PRN IV DECREASED GLUCOSE; Start 10/31/16 at 23:45 Dextrose (D50w Syringe) 50 ml Q15M PRN IV DECREASED GLUCOSE; Start 10/31/16 at 23:45 Glucagon (Glucagen) 1 mg Q15M PRN IM DECREASED GLUCOSE; Start 10/31/16 at 23:45 Glucose (Glutose) 15 gm Q15M PRN BUCCAL DECREASED GLUCOSE; Start 10/31/16 at 23: 45 Insulin Glargine 15 unit 15 unit DAILY@08 SC Last administered on 11/06/16 08: 04; Admin Dose 15 UNIT; Start 11/05/16 at 08:00 Vancomycin HCl (Vancocin) 250 ml @ 125 mls/hr Q96H IVPB Last administered on 14:46; Admin Dose 125 MLS/HR; Start 11/06/16 at 15:00 NATALY SIDDIQUI MD Nov 06, 2016 21:07
[2016-11-07] VITALS (21 sets, daily range): BP systolic 74–141; BP diastolic 51–90; PULSE 80–118; RESP 14–23
[2016-11-07] MEDS: ACCUCHECK XX SCH (02:16)
[2016-11-07] MEDS: ALBUTEROL HFA 8 GM INHALER INH SCH ×6 (02:16→22:53)
[2016-11-07] MEDS: PANTOPRAZOLE (EC) 40 MG TAB PO SCH (05:10)
[2016-11-07] MEDS: LEVOFLOXACIN 250 MG TAB PO SCH (05:10)
[2016-11-07] MEDS: INSULIN ASPART [NOVOLOG] 3 ML PEN SC SCH ×7 (08:02→21:00)
[2016-11-07] MEDS: SEVELAMER CARBONATE 0.8 GM PKT PO SCH ×3 (08:04→22:54)
[2016-11-07] MEDS: INSULIN GLARGINE [LANtus] 3 ML PEN SC SCH (08:04)
[2016-11-07] MEDS: ISOSORBIDE MONONITRATE(SR)30 MG TAB PO SCH (08:04)
[2016-11-07] MEDS: OLANZAPINE 5 MG TAB PO SCH (08:04)
[2016-11-07] MEDS: CLOPIDOGREL 75 MG TAB PO SCH (08:04)
[2016-11-07] MEDS: METOPROLOL 25 MG TAB PO SCH ×2 (08:05→22:54)
[2016-11-07] MEDS ORDERED: DEXTROSE 5%-0.45% NACL 1,000 ML IV SCH (11:30)
--- NOTE | 2016-11-07 19:32 | PN ---
Date/Time of Note Date/Time of Note DATE: 11/07/16 TIME: 19:31 Assessment/Plan VTE Prophylaxis VTE Prophylaxis Intervention: other Lines/Catheters IV Catheter Type (from [facility]): Saline Lock Urinary Cath still in place: No Assessment/Plan Chief Complaint/Hosp Course IMPRESSION: 1. Patient has a protruding graft on the upper extremity. mssa 2. Hypertension. 3. Diabetes mellitus. 4. Anemia. 5. Atherosclerotic heart disease. 6. Dyslipidemia. PLAN ANTIBIOTIC HD ss insulin SURGERY SOON Problems: Subjective 24 Hr Interval Summary Cardiovascular: no complaints Gastrointestinal: no complaints Exam/Review of Systems Vital Signs Vitals Vital Signs Date Time Temp Pulse Resp B/P Pulse Ox O2 Delivery O2 Flow Rate FiO2 11/07/16 13:00 104 11/07/16 13:00 17 11/07/16 07:38 97.5 122/59 93 Intake and Output 11/06/16 11/06/16 11/07/16 15:00 23:00 07:00 Intake Total 1686 ml 450 ml Balance 1686 ml 450 ml Exam Neck: supple Respiratory: clear to auscultation Cardiovascular: regular rate and rhythm Gastrointestinal: soft Musculoskeletal: nl extremities to inspection Results Result Diagram: 11/05/16 0525 11/05/16 0525 Results 24 hrs Laboratory Tests Test 11/06/16 20:49 11/06/16 21:31 11/06/16 21:45 11/07/16 02:15 Bedside Glucose 67 L 101 98 194 Test 11/07/16 04:20 11/07/16 07:12 11/07/16 11:57 11/07/16 16:04 Hemoglobin A1c 9.2 H Bedside Glucose 162 211 290 H Test 11/07/16 19:28 Bedside Glucose 140 Medications Medications Current Medications Atorvastatin Calcium (Lipitor) 20 mg QHS PO Last administered on 11/06/16 20:53 ; Admin Dose 20 MG; Start 11/01/16 at 21:00 Clopidogrel Bisulfate (plaVIX) 75 mg DAILY PO Last administered on 11/07/16 08: 04; Admin Dose 75 MG; Start 11/01/16 at 09:00 Isosorbide Mononitrate (Imdur) 30 mg DAILY PO Last administered on 11/04/16 09: 58; Admin Dose 30 MG; Start 11/01/16 at 09:00 Metoprolol Tartrate (Lopressor) 25 mg BID PO Last administered on 11/06/16 20: 53; Admin Dose 25 MG; Start 11/01/16 at 09:00 Olanzapine (Zyprexa) 15 mg DAILY PO Last administered on 11/07/16 08:04; Admin Dose 15 MG; Start 11/01/16 at 09:00 Pantoprazole (Protonix Tab) 40 mg DAILY@06 PO Last administered on 11/07/16 05: 10; Admin Dose 40 MG; Start 11/01/16 at 06:00 Sevelamer Carbonate (Renvela) 1.6 gm TID PO Last administered on 11/07/16 08:04 ; Admin Dose 1.6 GM; Start 11/01/16 at 09:00 Ondansetron HCl (Zofran Inj) 4 mg Q6H PRN IV NAUSEA AND/OR VOMITING; Start 10/31 at 23:30 Acetaminophen (Tylenol Tab) 650 mg Q6H PRN PO PAIN LEVEL 1-3 OR FEVER; Start at 23:30 Acetaminophen (Tylenol Supp) 650 mg Q6H PRN [place] PAIN LEVEL 1-3 OR FEVER Last administered on 11/07/16 10:54; Admin Dose 650 MG; Start 10/31/16 at 23:30 Docusate Sodium (Colace) 100 mg Q12H PRN PO CONSTIPATION; Start 10/31/16 at 23: 30 Bisacodyl (Dulcolax) 5 mg DAILY PRN PO CONSTIPATION; Start 10/31/16 at 23:30 Diagnostic Test (Pha) (Accucheck) 1 ea 02 XX Last administered on 11/07/16 02: 16; Admin Dose 1 EA; Start 11/01/16 at 02:00 Levofloxacin (Levaquin) 250 mg Q48H PO Last administered on 11/07/16 05:10; Admin Dose 250 MG; Start 11/03/16 at 06:00 Miscellaneous Information 1 ea NOTE XX ; Start 10/31/16 at 23:45 Glucose (Glutose) 15 gm Q15M PRN PO DECREASED GLUCOSE; Start 10/31/16 at 23:45 Glucose (Glutose) 22.5 gm Q15M PRN PO DECREASED GLUCOSE; Start 10/31/16 at 23:45 Dextrose (D50w Syringe) 25 ml Q15M PRN IV DECREASED GLUCOSE; Start 10/31/16 at 23:45 Dextrose (D50w Syringe) 50 ml Q15M PRN IV DECREASED GLUCOSE; Start 10/31/16 at 23:45 Glucagon (Glucagen) 1 mg Q15M PRN IM DECREASED GLUCOSE; Start 10/31/16 at 23:45 Glucose (Glutose) 15 gm Q15M PRN BUCCAL DECREASED GLUCOSE; Start 10/31/16 at 23: 45 Insulin Glargine 15 unit 15 unit DAILY@08 SC Last administered on 11/07/16 08: 04; Admin Dose 15 UNIT; Start 11/05/16 at 08:00 Vancomycin HCl 250 ml @ 125 mls/hr Q96H IVPB Last administered on 11/06/16 14: 46; Admin Dose 125 MLS/HR; Start 11/06/16 at 15:00 Dextrose/Sodium Chloride (D5-1/2ns) 1,000 ml @ 40 mls/hr Q24H IV Last administered on 11/07/16 14:59; Admin Dose 40 MLS/HR; Start 11/07/16 at 11:30 Insulin Aspart (Novolog Insulin Pen) NOVOLOG *MODERATE* ALGORI... Q4 SC Last administered on 11/07/16 16:15; Admin Dose 8 UNIT; Start 11/07/16 at 17:00 NATALY SIDDIQUI MD Nov 07, 2016 19:32
[2016-11-07] MEDS ORDERED: GELATIN SIZE 100 SPONGE ONE (19:53)
[2016-11-07] MEDS ORDERED: HEPARIN 1000 UNITS/ML 10 ML INJ ONE (19:53)
[2016-11-07] MEDS ORDERED: LIDOCAINE 1% (STERILE-PAK) 30 ML INJ ONE (19:53)
[2016-11-07] MEDS ORDERED: BUPIVACAINE 0.25% (MPF) 30 ML INJ ONE (19:53)
[2016-11-07] MEDS ORDERED: THROMBIN 5000 UNIT VIAL ONE (19:54)
[2016-11-07] MEDS ORDERED: POLYMYXIN/BACITRACIN 1L IRRIG ONE (19:54)
[2016-11-07] MEDS ORDERED: PROPOFOL 20 ML ONE (20:20)
[2016-11-07] MEDS ORDERED: FENTAnyl 50 MCG/ML VIAL ONE (20:20)
[2016-11-07] MEDS ORDERED: MIDAZOLAM 1 MG/ML 2 ML INJ ONE (20:21)
--- NOTE | 2016-11-07 21:13 | OPPN ---
Date/Time of Note Date/Time of Note DATE: 11/07/16 TIME: 21:12 Operative/Procedure Note Pre-Operative Diagnosis infected LUE AVG Post-Operative Diagnosis same Procedure removal of LUE AVG Surgeon: CHAGO SUAZO MD Estimated blood loss: minimal Specimens: Not Applicable Complications: None Anesthesia type: general CHAGO SUAZO MD Nov 07, 2016 21:13
[2016-11-07] MEDS ORDERED: EPHEDrine SULFATE 50 MG/5 ML SYG ONE (21:17)
[2016-11-07] MEDS ORDERED: HYDROmorphONE (0.2 MG/ML) 10ML SYG IV ONE (21:38)
[2016-11-07] MEDS ORDERED: HYDROmorphONE 1 MG/ML SYG IV STA (21:39)
[2016-11-07] MEDS ORDERED: IOHEXOL 300MG/ML 30 ML BTL ONE (21:44)
[2016-11-07] MEDS ORDERED: MIDAZOLAM 1 MG/ML 2 ML INJ IV PRN (22:00)
[2016-11-07] MEDS ORDERED: HYDROmorphONE (0.2 MG/ML) 10ML SYG IV PRN ×2 (22:00)
[2016-11-07] MEDS ORDERED: METOCLOPRAMIDE 10 MG INJ IV PRN (22:00)
[2016-11-07] MEDS ORDERED: FENTAnyl 50 MCG/ML VIAL IV PRN ×2 (22:00)
[2016-11-07] MEDS ORDERED: DIPHENHYDRAMINE 50 MG INJ IV PRN (22:00)
[2016-11-07] MEDS ORDERED: MEPERIDINE 25 MG INJ IV PRN (22:00)
[2016-11-07] MEDS ORDERED: ONDANSETRON 4 MG INJ IV PRN (22:00)
--- NOTE | 2016-11-07 22:21 | OPR ---
DATE OF OPERATION: PREOPERATIVE DIAGNOSIS: Infected left upper extremity arteriovenous graft. POSTOPERATIVE DIAGNOSIS: Infected left upper extremity arteriovenous graft. OPERATION PERFORMED: Removal of left upper extremity arteriovenous graft. SURGEON: Chago Lopes MD ANESTHESIA: General. INFORMED CONSENT: Risks, benefits, complications, alternative therapies, high-risk nature of the op eration fully explained to the patient and the family, consent obtained. OPERATIVE TECHNIQUE: The patient was placed in supine position, prepped and draped in usual sterile fashion. Lidocaine 1% was used throughout the operation for local anesthesia. A time-out was call ed and I started. The patient was already on antibiotics. There appeared to be 2 grafts in the lef t arm that were both exposed to the skin. The arterial and the venous anastomoses of the grafts wer e identified and dissected out by making a [address] They were both resected, leaving about 1 mm of the graft at the arterial anastomosis. Both grafts were then removed. The wound was irrigated using antibiotic solution and wrapped using a 4x4 dressing in addition to a Kerlix wrappi ng. EBL was only 10 mL. The patient tolerated procedure well. Dictated By: CHAGO LOPES MD FM/NTS Conf#: [id number] DID#: [id number]
[2016-11-07] MEDS: ATORVASTATIN 20 MG TAB PO SCH (22:53)
[2016-11-08] MEDS: ALBUTEROL HFA 8 GM INHALER INH SCH ×6 (01:36→22:29)
[2016-11-08] MEDS: ACCUCHECK XX SCH (01:36)
[2016-11-08] MEDS: PANTOPRAZOLE (EC) 40 MG TAB PO SCH (05:14)
[2016-11-08 07:34] VITALS: BP 109/50; RESP 18
[2016-11-08] MEDS: INSULIN ASPART [NOVOLOG] 3 ML PEN SC SCH ×8 (08:07→21:00)
[2016-11-08] MEDS: INSULIN GLARGINE [LANtus] 3 ML PEN SC SCH (08:08)
[2016-11-08] MEDS: SEVELAMER CARBONATE 0.8 GM PKT PO SCH ×3 (08:10→22:27)
[2016-11-08] MEDS: OLANZAPINE 5 MG TAB PO SCH (08:12)
[2016-11-08] MEDS: CLOPIDOGREL 75 MG TAB PO SCH (08:12)
[2016-11-08] MEDS: METOPROLOL 25 MG TAB PO SCH ×2 (08:54→22:49)
[2016-11-08] MEDS: ISOSORBIDE MONONITRATE(SR)30 MG TAB PO SCH (08:54)
--- NOTE | 2016-11-08 11:29 | PN ---
Date/Time of Note Date/Time of Note DATE: 11/08/16 TIME: 11:29 Assessment/Plan Lines/Catheters IV Catheter Type (from Nrsg): Saline Lock Pickard in Place (from Nrsg): No Assessment/Plan Chief Complaint/Hosp Course IMPRESSION: Infection, left upper extremity arteriovenous graft. SP Removal AVG RECOMMENDATIONS: will continue dressing changes and Abx Discussed with the nursing staff. and Dr. Melendrez. Problems: Subjective 24 Hr Interval Summary Constitutional: improved Pain Control: mild Exam/Review of Systems Vital Signs Vitals Vital Signs Date Time Temp Pulse Resp B/P Pulse Ox O2 Delivery O2 Flow Rate FiO2 11/08/16 07:34 98.3 87 18 109/50 96 11/08/16 00:46 2.0 11/07/16 22:36 Nasal Cannula Intake and Output 11/07/16 11/07/16 11/08/16 15:00 23:00 07:00 Intake Total 500 ml 640 ml 480 ml Output Total 2461 ml 10 ml Balance -1961 ml 630 ml 480 ml Exam Neck: non-tender, supple Respiratory: clear to auscultation, normal air movement Cardiovascular: nl pulses, regular rate and rhythm Gastrointestinal: nl liver, spleen, non-tender, soft Results Result Diagram: 11/05/16 0525 11/05/16 0525 CHAGO SUAZO MD Nov 08, 2016 11:29
[2016-11-08] MEDS ORDERED: INSULIN ASPART [NOVOLOG] 3 ML PEN SC ONE (12:30)
[2016-11-08 20:00] VITALS: BP 114/55; PULSE 95; RESP 18
[2016-11-08 20:17] VITALS: BP 114/55; RESP 20
--- NOTE | 2016-11-08 20:55 | PN ---
Date/Time of Note Date/Time of Note DATE: 11/08/16 TIME: 20:54 Assessment/Plan VTE Prophylaxis VTE Prophylaxis Intervention: other Lines/Catheters [facility] Saline Lock Urinary Cath still in place: No Assessment/Plan Chief Complaint/Hosp Course IMPRESSION: 1. Patient has a protruding graft on the upper extremity. mssas/p avg removal 2. Hypertension. 3. Diabetes mellitus. 4. Anemia. 5. Atherosclerotic heart disease. 6. Dyslipidemia. PLAN ANTIBIOTIC HD ss insulin antibiotic Problems: Subjective 24 Hr Interval Summary Gastrointestinal: no complaints Genitourinary: no complaints Musculoskeletal: no complaints Exam/Review of Systems Vital Signs Vitals Vital Signs Date Time Temp Pulse Resp B/P Pulse Ox O2 Delivery O2 Flow Rate FiO2 11/08/16 20:17 98.4 95 20 114/55 93 11/08/16 00:46 2.0 11/07/16 22:36 Nasal Cannula Intake and Output 11/07/16 11/07/16 11/08/16 15:00 23:00 07:00 Intake Total 500 ml 640 ml 480 ml Output Total 2461 ml 10 ml Balance -1961 ml 630 ml 480 ml Exam Respiratory: clear to auscultation Cardiovascular: regular rate and rhythm Gastrointestinal: soft Musculoskeletal: nl extremities to inspection Results Result Diagram: 11/05/16 0525 11/05/16 0525 Results 24 hrs Laboratory Tests Test 11/08/16 01:35 11/08/16 07:27 11/08/16 11:39 11/08/16 11:41 Bedside Glucose 213 282 H 225 H 387 H Test 11/08/16 17:21 Bedside Glucose 224 H Medications Medications Current Medications Atorvastatin Calcium (Lipitor) 20 mg QHS PO Last administered on 11/07/16 22:53 ; Admin Dose 20 MG; Start 11/01/16 at 21:00 Clopidogrel Bisulfate (plaVIX) 75 mg DAILY PO Last administered on 11/08/16 08: 12; Admin Dose 75 MG; Start 11/01/16 at 09:00 Isosorbide Mononitrate (Imdur) 30 mg DAILY PO Last administered on 11/04/16 09: 58; Admin Dose 30 MG; Start 11/01/16 at 09:00 Metoprolol Tartrate (Lopressor) 25 mg BID PO Last administered on 11/07/16 22: 54; Admin Dose 25 MG; Start 11/01/16 at 09:00 Olanzapine (Zyprexa) 15 mg DAILY PO Last administered on 11/08/16 08:12; Admin Dose 15 MG; Start 11/01/16 at 09:00 Pantoprazole (Protonix Tab) 40 mg DAILY@06 PO Last administered on 11/08/16 05: 14; Admin Dose 40 MG; Start 11/01/16 at 06:00 Sevelamer Carbonate (Renvela) 1.6 gm TID PO Last administered on 11/08/16 12:05 ; Admin Dose 1.6 GM; Start 11/01/16 at 09:00 Ondansetron HCl (Zofran Inj) 4 mg Q6H PRN IV NAUSEA AND/OR VOMITING; Start 10/31 at 23:30 Acetaminophen (Tylenol Tab) 650 mg Q6H PRN PO PAIN LEVEL 1-3 OR FEVER; Start at 23:30 Acetaminophen (Tylenol Supp) 650 mg Q6H PRN [place] PAIN LEVEL 1-3 OR FEVER Last administered on 11/07/16 10:54; Admin Dose 650 MG; Start 10/31/16 at 23:30 Docusate Sodium (Colace) 100 mg Q12H PRN PO CONSTIPATION; Start 10/31/16 at 23: 30 Bisacodyl (Dulcolax) 5 mg DAILY PRN PO CONSTIPATION; Start 10/31/16 at 23:30 Diagnostic Test (Pha) (Accucheck) 1 ea 02 XX Last administered on 11/08/16 01: 36; Admin Dose 1 EA; Start 11/01/16 at 02:00 Levofloxacin (Levaquin) 250 mg Q48H PO Last administered on 11/07/16 05:10; Admin Dose 250 MG; Start 11/03/16 at 06:00 Miscellaneous Information 1 ea NOTE XX ; Start 10/31/16 at 23:45 Glucose (Glutose) 15 gm Q15M PRN PO DECREASED GLUCOSE; Start 10/31/16 at 23:45 Glucose (Glutose) 22.5 gm Q15M PRN PO DECREASED GLUCOSE; Start 10/31/16 at 23:45 Dextrose (D50w Syringe) 25 ml Q15M PRN IV DECREASED GLUCOSE; Start 10/31/16 at 23:45 Dextrose (D50w Syringe) 50 ml Q15M PRN IV DECREASED GLUCOSE; Start 10/31/16 at 23:45 Glucagon (Glucagen) 1 mg Q15M PRN IM DECREASED GLUCOSE; Start 10/31/16 at 23:45 Glucose (Glutose) 15 gm Q15M PRN BUCCAL DECREASED GLUCOSE; Start 10/31/16 at 23: 45 Insulin Glargine 15 unit 15 unit DAILY@08 SC Last administered on 11/08/16 08: 08; Admin Dose 15 UNIT; Start 11/05/16 at 08:00 Vancomycin HCl (Vancocin) 250 ml @ 125 mls/hr Q96H IVPB Last administered on 14:46; Admin Dose 125 MLS/HR; Start 11/06/16 at 15:00 NATALY SIDDIQUI MD Nov 08, 2016 20:54
[2016-11-08] MEDS: ACETAMINOPHEN 325 MG TAB PO PRN (22:27)
[2016-11-08] MEDS: ATORVASTATIN 20 MG TAB PO SCH (22:48)
[2016-11-09] VITALS (11 sets, daily range): BP systolic 90–139; BP diastolic 48–65; PULSE 85–99; RESP 17–18
[2016-11-09] MEDS: ACCUCHECK XX SCH (02:00)
[2016-11-09] MEDS: ALBUTEROL HFA 8 GM INHALER INH SCH ×6 (02:09→22:21)
[2016-11-09] MEDS: LEVOFLOXACIN 250 MG TAB PO SCH (05:12)
[2016-11-09] MEDS: PANTOPRAZOLE (EC) 40 MG TAB PO SCH (05:12)
[2016-11-09 07:23] LABS: ADD SCAN DIFF NO
[2016-11-09 07:30] LABS: BASOPHILS % 0.4 % (0.0-2.0); EOSINOPHILS # 0.6 10^3/ul (0.0-0.5); EOSINOPHILS % 6.1 % (0.0-7.0); HEMATOCRIT 31.4 % (37.0-47.0); HEMOGLOBIN 9.7 g/dl (12.0-16.0); LYMPHOCYTES # 1.4 10^3/ul (0.8-2.9); LYMPHOCYTES % 14.5 % (15.0-51.0); MEAN CORPUSCULAR HGB CONC 30.9 g/dl (32.0-37.0); MEAN CORPUSCULAR VOLUME 90.8 fl (82.0-101.0); MEAN PLATELET VOLUME 11.6 fl (7.4-10.4); MONOCYTES % 10.1 % (0.0-11.0); NEUTROPHIL # 6.4 10^3/ul (1.6-7.5); NEUTROPHILS % 67.9 % (39.0-77.0); PLATELET COUNT 182 10^3/UL (140-415); RED BLOOD COUNT 3.46 10^6/ul (4.20-5.40); RED CELL DISTRIBUTION WIDTH 13.4 % (11.5-14.5); WHITE BLOOD COUNT 9.4 10^3/ul (4.8-10.8)
[2016-11-09 07:56] LABS: ALBUMIN 3.3 g/dl (3.3-4.9)
[2016-11-09 07:57] LABS: POTASSIUM 3.7 mmol/L (3.5-5.1)
[2016-11-09 07:59] LABS: ALBUMIN/GLOBULIN RATIO 1.17; CALCIUM 8.8 mg/dl (8.4-10.2); CREATININE 7.05 mg/dl (0.44-1.00); TOTAL PROTEIN 6.1 g/dl (6.1-8.1)
[2016-11-09] MEDS: INSULIN GLARGINE [LANtus] 3 ML PEN SC SCH (08:08)
[2016-11-09] MEDS: INSULIN ASPART [NOVOLOG] 3 ML PEN SC SCH ×8 (08:09→21:45)
[2016-11-09] MEDS: SEVELAMER CARBONATE 0.8 GM PKT PO SCH ×3 (08:10→21:37)
[2016-11-09] MEDS: CLOPIDOGREL 75 MG TAB PO SCH (08:10)
[2016-11-09] MEDS: OLANZAPINE 5 MG TAB PO SCH (08:10)
[2016-11-09] MEDS: ISOSORBIDE MONONITRATE(SR)30 MG TAB PO SCH (08:19)
[2016-11-09] MEDS: METOPROLOL 25 MG TAB PO SCH ×2 (08:20→21:39)
--- NOTE | 2016-11-09 17:07 | PN ---
Date/Time of Note Date/Time of Note DATE: 11/09/16 TIME: 17:06 Assessment/Plan Lines/Catheters IV Catheter Type (from Nrsg): Saline Lock Pickard in Place (from Nrsg): No Assessment/Plan Chief Complaint/Hosp Course IMPRESSION: Infection, left upper extremity arteriovenous graft. SP Removal AVG RECOMMENDATIONS: will continue dressing changes and Abx local wound care Discussed with the nursing staff. and Dr. Melendrez. Problems: Subjective 24 Hr Interval Summary Constitutional: improved Pain Control: mild Exam/Review of Systems Vital Signs Vitals Vital Signs Date Time Temp Pulse Resp B/P Pulse Ox O2 Delivery O2 Flow Rate FiO2 11/09/16 15:00 12.0 11/09/16 07:52 98.2 81 17 103/50 93 11/08/16 20:00 Nasal Cannula Intake and Output 11/08/16 11/08/16 11/09/16 14:59 22:59 06:59 Intake Total 720 ml 300 ml Balance 720 ml 300 ml Exam Neck: non-tender, supple Respiratory: clear to auscultation, normal air movement Cardiovascular: nl pulses, regular rate and rhythm Gastrointestinal: nl liver, spleen, non-tender, soft Results Result Diagram: 11/09/16 0615 11/09/1615 CHAGO SUAZO MD Nov 09, 2016 17:07
--- NOTE | 2016-11-09 18:30 | PN ---
Date/Time of Note Date/Time of Note DATE: 11/09/16 TIME: 18:29 Assessment/Plan VTE Prophylaxis VTE Prophylaxis Intervention: other Lines/Catheters IV C[facility]ter Type (from [facility]): permacath Urinary Cath still in place: No Assessment/Plan Chief Complaint/Hosp Course IMPRESSION: 1. Patient has a protruding graft on the upper extremity. mssas/p avg removal 2. Hypertension. 3. Diabetes mellitus. 4. Anemia. 5. Atherosclerotic heart disease. 6. Dyslipidemia. PLAN ANTIBIOTIC HD ss insulin antibiotic PER SURGERY Problems: Subjective 24 Hr Interval Summary Respiratory: no complaints Exam/Review of Systems Vital Signs Vitals Vital Signs Date Time Temp Pulse Resp B/P Pulse Ox O2 Delivery O2 Flow Rate FiO2 11/09/16 17:31 88 15 11/09/16 15:00 12.0 11/09/16 07:52 98.2 103/50 93 11/08/16 20:00 Nasal Cannula Intake and Output 11/08/16 11/08/16 11/09/16 15:00 23:00 07:00 Intake Total 720 ml 300 ml Balance 720 ml 300 ml Exam Respiratory: clear to auscultation Cardiovascular: regular rate and rhythm Gastrointestinal: soft Musculoskeletal: nl extremities to inspection Extremities: edema (LEFT ARM), normal pulses Results Result Diagram: 11/09/1615 11/09/16 0615 Results 24 hrs Laboratory Tests Test 11/08/16 22:42 11/09/16 06:15 11/09/16 07:44 11/09/16 11:34 Bedside Glucose 126 185 203 Alanine Aminotransferase (ALT/SGPT) 14 Albumin 3.3 Albumin/Globulin Ratio 1.17 Alkaline Phosphatase 121 Anion Gap 21 H Aspartate Amino Transf (AST/SGOT) 16 Basophils # 0.0 Basophils % 0.4 Blood Urea Nitrogen 61 H Calcium Level 8.8 Carbon Dioxide Level 23 Chloride Level 96 L Creatinine 7.05 H Direct Bilirubin 0.00 Eosinophils # 0.6 H Eosinophils % 6.1 Globulin 2.80 Glucose Level 152 Hematocrit 31.4 L Hemoglobin 9.7 L Indirect Bilirubin 0.0 Lymphocytes # 1.4 Lymphocytes % 14.5 L Mean Corpuscular Hemoglobin 28.0 L Mean Corpuscular Hemoglobin Concent 30.9 L Mean Corpuscular Volume 90.8 Mean Platelet Volume 11.6 H Monocytes # 1.0 H Monocytes % 10.1 Neutrophils # 6.4 Neutrophils % 67.9 Nucleated Red Blood Cells # 0.0 Nucleated Red Blood Cells % 0.0 Platelet Count 182 Potassium Level 3.7 Red Blood Count 3.46 L Red Cell Distribution Width 13.4 Sodium Level 136 Total Bilirubin 0.0 L Total Protein 6.1 White Blood Count 9.4 Test 11/09/16 16:27 Bedside Glucose 89 Medications Medications Current Medications Atorvastatin Calcium (Lipitor) 20 mg QHS PO Last administered on 11/08/16 22:48 ; Admin Dose 20 MG; Start 11/01/16 at 21:00 Clopidogrel Bisulfate (plaVIX) 75 mg DAILY PO Last administered on 11/09/16 08 :10; Admin Dose 75 MG; Start 11/01/16 at 09:00 Isosorbide Mononitrate (Imdur) 30 mg DAILY PO Last administered on 11/04/16 09: 58; Admin Dose 30 MG; Start 11/01/16 at 09:00 Metoprolol Tartrate (Lopressor) 25 mg BID PO Last administered on 11/08/16 22: 49; Admin Dose 25 MG; Start 11/01/16 at 09:00 Olanzapine (Zyprexa) 15 mg DAILY PO Last administered on 11/09/16 08:10; Admin Dose 15 MG; Start 11/01/16 at 09:00 Pantoprazole (Protonix Tab) 40 mg DAILY@06 PO Last administered on 11/09/16 05 :12; Admin Dose 40 MG; Start 11/01/16 at 06:00 Sevelamer Carbonate (Renvela) 1.6 gm TID PO Last administered on 11/09/16 12: 12; Admin Dose 1.6 GM; Start 11/01/16 at 09:00 Ondansetron HCl (Zofran Inj) 4 mg Q6H PRN IV NAUSEA AND/OR VOMITING; Start 10/31 at 23:30 Acetaminophen (Tylenol Tab) 650 mg Q6H PRN PO PAIN LEVEL 1-3 OR FEVER Last administered on 11/08/16 22:27; Admin Dose 650 MG; Start 10/31/16 at 23:30 Acetaminophen (Tylenol Supp) 650 mg Q6H PRN [place] PAIN LEVEL 1-3 OR FEVER Last administered on 11/07/16 10:54; Admin Dose 650 MG; Start 10/31/16 at 23:30 Docusate Sodium (Colace) 100 mg Q12H PRN PO CONSTIPATION; Start 10/31/16 at 23: 30 Bisacodyl (Dulcolax) 5 mg DAILY PRN PO CONSTIPATION; Start 10/31/16 at 23:30 Diagnostic Test (Pha) (Accucheck) 1 ea 02 XX Last administered on 11/08/16 01: 36; Admin Dose 1 EA; Start 11/01/16 at 02:00 Levofloxacin (Levaquin) 250 mg Q48H PO Last administered on 11/09/16 05:12; Admin Dose 250 MG; Start 11/03/16 at 06:00 Miscellaneous Information 1 ea NOTE XX ; Start 10/31/16 at 23:45 Glucose (Glutose) 15 gm Q15M PRN PO DECREASED GLUCOSE; Start 10/31/16 at 23:45 Glucose (Glutose) 22.5 gm Q15M PRN PO DECREASED GLUCOSE; Start 10/31/16 at 23:45 Dextrose (D50w Syringe) 25 ml Q15M PRN IV DECREASED GLUCOSE; Start 10/31/16 at 23:45 Dextrose (D50w Syringe) 50 ml Q15M PRN IV DECREASED GLUCOSE; Start 10/31/16 at 23:45 Glucagon (Glucagen) 1 mg Q15M PRN IM DECREASED GLUCOSE; Start 10/31/16 at 23:45 Glucose 15 gm 15 gm Q15M PRN BUCCAL DECREASED GLUCOSE; Start 10/31/16 at 23:45 Vancomycin HCl (Vancocin) 250 ml @ 125 mls/hr Q96H IVPB Last administered on 14:46; Admin Dose 125 MLS/HR; Start 11/06/16 at 15:00 Insulin Glargine (Lantus) 18 unit DAILY@08 SC ; Start 11/10/16 at 08:00 Miscellaneous Information (* Miscellaneous Pharmacy Order) Discontinue all previ... ONCE ONCE XX ; Start 11/09/16 at 18:30; Stop 11/09/16 at 18:31 NATALY SIDDIQUI MD Nov 09, 2016 18:30
[2016-11-09] MEDS: ACETAMINOPHEN 325 MG TAB PO PRN (21:38)
[2016-11-09] MEDS: ATORVASTATIN 20 MG TAB PO SCH (21:39)
[2016-11-10] MEDS: ALBUTEROL HFA 8 GM INHALER INH SCH ×6 (01:21→20:33)
[2016-11-10] MEDS: ACCUCHECK XX SCH ×2 (01:25→20:39)
[2016-11-10] MEDS ORDERED: ACCUCHECK XX SCH (02:00)
[2016-11-10] MEDS: PANTOPRAZOLE (EC) 40 MG TAB PO SCH (05:29)
[2016-11-10 07:20] VITALS: BP 104/50; RESP 18
[2016-11-10] MEDS: INSULIN ASPART [NOVOLOG] 3 ML PEN SC SCH ×7 (08:00→19:50)
[2016-11-10] MEDS: OLANZAPINE 5 MG TAB PO SCH (08:22)
[2016-11-10] MEDS: CLOPIDOGREL 75 MG TAB PO SCH (08:22)
[2016-11-10] MEDS: SEVELAMER CARBONATE 0.8 GM PKT PO SCH ×3 (08:22→20:32)
[2016-11-10] MEDS: ISOSORBIDE MONONITRATE(SR)30 MG TAB PO SCH (08:23)
[2016-11-10] MEDS: METOPROLOL 25 MG TAB PO SCH ×2 (08:23→20:30)
[2016-11-10] MEDS: INSULIN GLARGINE [LANtus] 3 ML PEN SC SCH (08:24)
--- NOTE | 2016-11-10 13:57 | PN ---
Date/Time of Note Date/Time of Note DATE: 11/10/16 TIME: 13:51 Assessment/Plan VTE Prophylaxis VTE Prophylaxis Intervention: SCD's Lines/Catheters IV Catheter Type (from Nrs): Perma cath Urinary Cath still in place: No Assessment/Plan Chief Complaint/Hosp Course 1. Patient s/p graft removal 2. Hypertension, controlled. 3. Diabetes mellitus, uncontrolled, will need home health upon discharge. Continue insulin coverage. 4. Anemia more likely CKD related. 5. Atherosclerotic heart disease. 6. Dyslipidemia. 7. Continue HD via portocath Problems: Assessment/Plan Will contact dr Lopes for discharge clearance, pt is willing to go home with home health Subjective 24 Hr Interval Summary Constitutional: improved, no complaints Eyes: no complaints ENT: no complaints Respiratory: no complaints Cardiovascular: no complaints Gastrointestinal: no complaints Skin: other (wound after AV shunt removal left arm) Exam/Review of Systems Vital Signs Vitals Vital Signs Date Time Temp Pulse Resp B/P Pulse Ox O2 Delivery O2 Flow Rate FiO2 11/10/16 07:20 98.3 75 18 104/50 98 11/10/16 01:20 2.0 11/08/16 20:00 Nasal Cannula Intake and Output 11/09/16 11/09/16 11/10/16 15:00 23:00 07:00 Intake Total 2260 ml 240 ml Output Total 2300 ml Balance -40 ml 240 ml Exam Constitutional: alert, oriented, well developed Psych: no complaints Head: normocephalic Eyes: nl conjunctiva ENMT: nl external ears & nose, nl lips & teeth Neck: supple Respiratory: clear to auscultation Cardiovascular: regular rate and rhythm Gastrointestinal: nl liver, spleen, soft Genitourinary - Female: nl adnexae Musculoskeletal: nl extremities to inspection Skin: other (left arm woud clean and dry left arm) Results Result Diagram: 11/09/16 0615 11/09/16 0615 Results 24 hrs Laboratory Tests Test 11/09/16 16:27 11/09/16 21:40 11/10/16 01:23 11/10/16 07:53 Bedside Glucose 89 217 249 H 194 Test 11/10/16 10:55 Bedside Glucose 372 H Medications Medications Current Medications Atorvastatin Calcium (Lipitor) 20 mg QHS PO Last administered on 11/09/16t 21: 39; Admin Dose 20 MG; Start 11/01/16 at 21:00 Clopidogrel Bisulfate (plaVIX) 75 mg DAILY PO Last administered on 11/10/16 08 :22; Admin Dose 75 MG; Start 11/01/16 at 09:00 Isosorbide Mononitrate (Imdur) 30 mg DAILY PO Last administered on 11/04/16 09: 58; Admin Dose 30 MG; Start 11/01/16 at 09:00 Metoprolol Tartrate (Lopressor) 25 mg BID PO Last administered on 11/09/16 21: 39; Admin Dose 25 MG; Start 11/01/16 at 09:00 Olanzapine (Zyprexa) 15 mg DAILY PO Last administered on 11/10/16 08:22; Admin Dose 15 MG; Start 11/01/16 at 09:00 Pantoprazole (Protonix Tab) 40 mg DAILY@06 PO Last administered on 11/10/16 05 :29; Admin Dose 40 MG; Start 11/01/16 at 06:00 Sevelamer Carbonate (Renvela) 1.6 gm TID PO Last administered on 11/10/16 12: 03; Admin Dose 1.6 GM; Start 11/01/16 at 09:00 Ondansetron HCl (Zofran Inj) 4 mg Q6H PRN IV NAUSEA AND/OR VOMITING; Start 10/31 at 23:30 Acetaminophen (Tylenol Tab) 650 mg Q6H PRN PO PAIN LEVEL 1-3 OR FEVER Last administered on 11/09/16 21:38; Admin Dose 650 MG; Start 10/31/16 at 23:30 Acetaminophen (Tylenol Supp) 650 mg Q6H PRN [place] PAIN LEVEL 1-3 OR FEVER Last administered on 11/07/16 10:54; Admin Dose 650 MG; Start 10/31/16 at 23:30 Docusate Sodium (Colace) 100 mg Q12H PRN PO CONSTIPATION; Start 10/31/16 at 23: 30 Bisacodyl (Dulcolax) 5 mg DAILY PRN PO CONSTIPATION; Start 10/31/16 at 23:30 Diagnostic Test (Pha) (Accucheck) 1 ea 02 XX Last administered on 11/08/16 01: 36; Admin Dose 1 EA; Start 11/01/16 at 02:00 Levofloxacin (Levaquin) 250 mg Q48H PO Last administered on 11/09/16 05:12; Admin Dose 250 MG; Start 11/03/16 at 06:00 Miscellaneous Information 1 ea NOTE XX ; Start 10/31/16 at 23:45 Glucose (Glutose) 15 gm Q15M PRN PO DECREASED GLUCOSE; Start 10/31/16 at 23:45 Glucose (Glutose) 22.5 gm Q15M PRN PO DECREASED GLUCOSE; Start 10/31/16 at 23:45 Dextrose (D50w Syringe) 25 ml Q15M PRN IV DECREASED GLUCOSE; Start 10/31/16 at 23:45 Dextrose (D50w Syringe) 50 ml Q15M PRN IV DECREASED GLUCOSE; Start 10/31/16 at 23:45 Glucagon (Glucagen) 1 mg Q15M PRN IM DECREASED GLUCOSE; Start 10/31/16 at 23:45 Glucose 15 gm 15 gm Q15M PRN BUCCAL DECREASED GLUCOSE; Start 10/31/16 at 23:45 Vancomycin HCl (Vancocin) 250 ml @ 125 mls/hr Q96H IVPB Last administered on 14:46; Admin Dose 125 MLS/HR; Start 11/06/16 at 15:00 Insulin Glargine (Lantus) 18 unit DAILY@08 SC Last administered on 11/10/16 08 :24; Admin Dose 18 UNIT; Start 11/10/16 at 08:00 SHAYAN NAGEL Nov 10, 2016 13:57
--- NOTE | 2016-11-10 14:00 | PDOCDIS ---
Discharge Instructions CONDITION Patient Condition: Good HOME CARE INSTRUCTIONS: Diet Instructions: 2gm NaSpecial Diet: Renal diet ACTIVITY: Activity Restrictions: Slowly Increase Activity FOLLOW UP/APPOINTMENTS Appointments Dr Dacosta for new HD access PCP in 1 week Continue HD SHAYAN NAGEL Nov 10, 2016 14:00
[2016-11-10] MEDS: VANCOMYCIN 1 GM in NS 250 ML IVPB SCH (16:30)
[2016-11-10 20:27] VITALS: BP 112/53; RESP 20
[2016-11-10] MEDS: ATORVASTATIN 20 MG TAB PO SCH (20:32)
[2016-11-11] MEDS: ALBUTEROL HFA 8 GM INHALER INH SCH ×6 (01:20→21:47)
[2016-11-11] MEDS: LEVOFLOXACIN 250 MG TAB PO SCH (06:20)
[2016-11-11] MEDS: PANTOPRAZOLE (EC) 40 MG TAB PO SCH (06:20)
[2016-11-11 07:10] VITALS: BP 119/58; RESP 17
[2016-11-11] MEDS: INSULIN ASPART [NOVOLOG] 3 ML PEN SC SCH ×7 (08:06→21:00)
[2016-11-11] MEDS: CLOPIDOGREL 75 MG TAB PO SCH (08:08)
[2016-11-11] MEDS: SEVELAMER CARBONATE 0.8 GM PKT PO SCH ×3 (08:08→21:48)
[2016-11-11] MEDS: INSULIN GLARGINE [LANtus] 3 ML PEN SC SCH (08:08)
[2016-11-11] MEDS: OLANZAPINE 5 MG TAB PO SCH (08:08)
[2016-11-11] MEDS: ISOSORBIDE MONONITRATE(SR)30 MG TAB PO SCH (08:10)
[2016-11-11] MEDS: METOPROLOL 25 MG TAB PO SCH ×2 (08:10→21:00)
--- NOTE | 2016-11-11 17:26 | PN ---
Date/Time of Note Date/Time of Note DATE: 11/11/16 TIME: 17:25 Assessment/Plan VTE Prophylaxis VTE Prophylaxis Intervention: other Lines/Catheters IV Catheter Type (from [facility]): lcw permacath Urinary Cath still in place: No Assessment/Plan Chief Complaint/Hosp Course IMPRESSION: 1. Patient has a protruding graft on the upper extremity. mssas/p avg removal 2. Hypertension. 3. Diabetes mellitus. 4. Anemia. 5. Atherosclerotic heart disease. 6. Dyslipidemia. PLAN ANTIBIOTIC HD ss insulin antibiotic PER SURGERY WOUND CARE Problems: Subjective 24 Hr Interval Summary Cardiovascular: no complaints Gastrointestinal: no complaints Genitourinary: no complaints Exam/Review of Systems Vital Signs Vitals Vital Signs Date Time Temp Pulse Resp B/P Pulse Ox O2 Delivery O2 Flow Rate FiO2 11/11/16 16:49 2.0 11/11/16 07:10 98.4 73 17 119/58 94 11/08/16 20:00 Nasal Cannula Intake and Output 11/10/16 11/10/16 11/11/16 14:59 22:59 06:59 Intake Total 250 ml 480 ml Balance 250 ml 480 ml Exam Respiratory: clear to auscultation Cardiovascular: regular rate and rhythm Gastrointestinal: soft Musculoskeletal: nl extremities to inspection Results Result Diagram: 11/09/1615 11/09/16 0615 Results 24 hrs Laboratory Tests Test 11/10/16 19:49 11/11/16 07:42 11/11/16 11:52 11/11/16 16:45 Bedside Glucose 156 161 121 144 Medications Medications Current Medications Atorvastatin Calcium (Lipitor) 20 mg QHS PO Last administered on 11/10/16 20: 32; Admin Dose 20 MG; Start 11/01/16 at 21:00 Clopidogrel Bisulfate (plaVIX) 75 mg DAILY PO Last administered on 11/11/16 08 :08; Admin Dose 75 MG; Start 11/01/16 at 09:00 Isosorbide Mononitrate (Imdur) 30 mg DAILY PO Last administered on 11/11/16 08 :10; Admin Dose 30 MG; Start 11/01/16 at 09:00 Metoprolol Tartrate (Lopressor) 25 mg BID PO Last administered on 11/11/16 08: 10; Admin Dose 25 MG; Start 11/01/16 at 09:00 Olanzapine (Zyprexa) 15 mg DAILY PO Last administered on 11/11/16 08:08; Admin Dose 15 MG; Start 11/01/16 at 09:00 Pantoprazole (Protonix Tab) 40 mg DAILY@06 PO Last administered on 11/11/16 06 :20; Admin Dose 40 MG; Start 11/01/16 at 06:00 Sevelamer Carbonate (Renvela) 1.6 gm TID PO Last administered on 11/11/16 12: 13; Admin Dose 1.6 GM; Start 11/01/16 at 09:00 Ondansetron HCl (Zofran Inj) 4 mg Q6H PRN IV NAUSEA AND/OR VOMITING; Start 10/31 at 23:30 Acetaminophen (Tylenol Tab) 650 mg Q6H PRN PO PAIN LEVEL 1-3 OR FEVER Last administered on 11/09/16 21:38; Admin Dose 650 MG; Start 10/31/16 at 23:30 Acetaminophen (Tylenol Supp) 650 mg Q6H PRN TN PAIN LEVEL 1-3 OR FEVER Last administered on 11/07/16 10:54; Admin Dose 650 MG; Start 10/31/16 at 23:30 Docusate Sodium (Colace) 100 mg Q12H PRN PO CONSTIPATION; Start 10/31/16 at 23: 30 Bisacodyl (Dulcolax) 5 mg DAILY PRN PO CONSTIPATION; Start 10/31/16 at 23:30 Diagnostic Test (Pha) (Accucheck) 1 ea 02 XX Last administered on 11/08/16 01: 36; Admin Dose 1 EA; Start 11/01/16 at 02:00 Levofloxacin (Levaquin) 250 mg Q48H PO Last administered on 11/11/16 06:20; Admin Dose 250 MG; Start 11/03/16 at 06:00 Miscellaneous Information 1 ea NOTE XX ; Start 10/31/16 at 23:45 Glucose (Glutose) 15 gm Q15M PRN PO DECREASED GLUCOSE; Start 10/31/16 at 23:45 Glucose (Glutose) 22.5 gm Q15M PRN PO DECREASED GLUCOSE; Start 10/31/16 at 23:45 Dextrose (D50w Syringe) 25 ml Q15M PRN IV DECREASED GLUCOSE; Start 10/31/16 at 23:45 Dextrose (D50w Syringe) 50 ml Q15M PRN IV DECREASED GLUCOSE; Start 10/31/16 at 23:45 Glucagon (Glucagen) 1 mg Q15M PRN IM DECREASED GLUCOSE; Start 10/31/16 at 23:45 Glucose 15 gm 15 gm Q15M PRN BUCCAL DECREASED GLUCOSE; Start 10/31/16 at 23:45 Vancomycin HCl (Vancocin) 250 ml @ 125 mls/hr Q96H IVPB Last administered on 16:30; Admin Dose 125 MLS/HR; Start 11/06/16 at 15:00 Insulin Glargine (Lantus) 18 unit DAILY@08 SC Last administered on 11/11/16 08 :08; Admin Dose 18 UNIT; Start 11/10/16 at 08:00 NATALY SIDDIQUI MD Nov 11, 2016 17:25
[2016-11-11] MEDS: ATORVASTATIN 20 MG TAB PO SCH (21:48)
[2016-11-11 23:25] VITALS: BP 119/65; RESP 18
[2016-11-12] VITALS (9 sets, daily range): BP systolic 98–127; BP diastolic 56–67; PULSE 88–96; RESP 16–18
[2016-11-12] MEDS: ALBUTEROL HFA 8 GM INHALER INH SCH ×6 (01:57→20:57)
[2016-11-12] MEDS: ACCUCHECK XX SCH (02:00)
[2016-11-12] MEDS: PANTOPRAZOLE (EC) 40 MG TAB PO SCH (06:08)
[2016-11-12] MEDS: OLANZAPINE 5 MG TAB PO SCH (08:36)
[2016-11-12] MEDS: SEVELAMER CARBONATE 0.8 GM PKT PO SCH ×3 (08:36→20:57)
[2016-11-12] MEDS: CLOPIDOGREL 75 MG TAB PO SCH (08:36)
[2016-11-12] MEDS: INSULIN ASPART [NOVOLOG] 3 ML PEN SC SCH ×7 (08:40→21:00)
[2016-11-12] MEDS: INSULIN GLARGINE [LANtus] 3 ML PEN SC SCH (08:42)
[2016-11-12] MEDS: ISOSORBIDE MONONITRATE(SR)30 MG TAB PO SCH (08:46)
[2016-11-12] MEDS: METOPROLOL 25 MG TAB PO SCH ×2 (08:48→21:22)
[2016-11-12] MEDS: ATORVASTATIN 20 MG TAB PO SCH (20:57)
== END 2016-11-12 21:30 | DRG 907 ==
LOC: E/R 13:30 → PP2 21:00
PROVIDERS: ADMIT Internal Medicine Nephrology; ATTEND Internal Medicine Nephrology
PROC: 03PY0JZ Removal of Synthetic Substitute from Upper Artery, Open Approach (ICD-10-PCS; 2016-11-07)
PROC: 05PY3JZ Removal of Synthetic Substitute from Upper Vein, Percutaneous Approach (ICD-10-PCS; principal; 2016-11-07 21:00)
PROC: 5A1D60Z (ICD-10-PCS; 2016-11-09)
DX: T85.79XA Infection and inflammatory reaction due to other internal prosthetic devices, implants and grafts, initial encounter (principal); N18.6 End stage renal disease; I12.0 Hypertensive chronic kidney disease with stage 5 chronic kidney disease or end stage renal disease; E11.65 Type 2 diabetes mellitus with hyperglycemia; L03.114 Cellulitis of left upper limb; Z99.2 Dependence on renal dialysis; D63.1 Anemia in chronic kidney disease
CPT/HCPCS: 36415; 71010; 80048; 80053; 80202; 81001; 81003; 82962; 83036; 83605; 84484; 85025; 85610; 85730; 87040; 87070; 87075; 87086; 87102; 87116; 88304; 90935; 93005; 96374; 96375; C1725; J0744; J1170; J1644; J1815; J2250; J3010; J3370; J7042; Q9967